=== PATIENT | female | born 1945 | race Caucasian/White ===

== ENCOUNTER 2016-07-16 02:47 | Emergency (ER) | payer MEDICARE ==
--- NOTE | 2016-07-16 05:38 | DIAGNOSTIC IMAGING REPORT ---
PROCEDURE: XR CHEST 1 VIEW INDICATION: CONFUSION, initial encounter TECHNIQUE: Portable AP view 03:43 a.m. COMPARISON: Chest x-ray 06/07/2014 FINDINGS: Lungs are clear. Heart and mediastinum are normal. Resection of the distal right clavicle. No significant interval change. IMPRESSION: 1. Negative chest.
--- NOTE | 2016-07-16 05:42 | DIAGNOSTIC IMAGING REPORT ---
PROCEDURE: CT HEAD WITHOUT CONTRAST INDICATION: MENTAL STATUS CHANGE, initial encounter TECHNIQUE: Noncontrast axial images with sagittal and coronal reformations. COMPARISON: None. FINDINGS: Mild cortical atrophy and white matter chronic ischemic changes. Normal ventricular system. Dystrophic calcifications of the basal ganglia bilaterally. No evidence of acute intracranial process. Mild left maxillary sinus disease. Mastoids are clear. IMPRESSION: 1. No acute intracranial abnormality 2. Mild atrophy and white matter chronic ischemic changes 3. Mild left maxillary sinus disease 4. Preliminary results submitted by Dr. Miller
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
--- NOTE | 2016-07-16 08:03 | ED ORDER SUMMARY ---
..... Patient: DEV VAZQUEZ OrderSheet [facility] VisitID: [id number] [address] [place] [address] 70y, F Registration Date/Time: 07/16/2016 ORDER SHEET Weight: 107.0 kg (stated) Allergies: Codeine GENERAL ORDERS: Chest 1V Urgent (03:33 07/16/2016 Brooklynn CASTILLO) (Ack 3:36 AMcQuoid ER Tech1) (3:47 TLewis R.N.) CT Head wo Cont Urgent (03:07/16/2016 Brooklynn CASTILLO) (Ack 3:36 AMcQuoid ER Tech1) (4:11 AMcQuoid ER Tech1) Green Promotions Specialist (Continuous) (03:07/16/2016 Brooklynn CASTILLO) (Ack 3:36 AMcQuoid ER Tech1) (3:46 TLewis R.N.) Cardiac Panel Stat (03:07/16/2016 Brooklynn CASTILLO) (3:35 TLewis R.N.) (Ack 3:36 AMcQuoid ER Tech1) UA-Culture if indicated Urgent (03:07/16/2016 Brooklynn CASTILLO) (Ack 3:36 AMcQuoid ER Tech1) (5:01 TLewis R.N.) Urine Drug Screen Urgent (03:07/16/2016 Brooklynn CASTILLO) (Ack 3:36 AMcQuoid ER Tech1) (5:01 TLewis R.N.) TSH Urgent (03:07/16/2016 Brooklynn CASTILLO) (3:35 TLewis R.N.) (Ack 3:36 AMcQuoid ER Tech1) Ethyl Alcohol Urgent (03:07/16/2016 Brooklynn CASTILLO) (3:35 TLewis R.N.) (Ack 3:36 AMcQuoid ER Tech1) Ammonia Level Urgent (03:07/16/2016 Brooklynn CASTILLO) (3:35 TLewis R.N.) (Ack 3:36 AMcQuoid ER Tech1) Pulse oximeter (03:07/16/2016 Brooklynn CASTILLO) (3:35 TLewis R.N.) (Ack 3:36 AMcQuoid ER Tech1) EKG - ER Stat (03:34 07/16/2016 Brooklynn CASTILLO) (Ack 3:36 AMcQuoid ER Tech1) (3:47 Fawadwis R.N.) MEDICATION ORDERS: IV FLUIDS: IV NS : initial bolus 500 mL (1000 mL/hr), then 150 mL/hr for 4h (NOW); Routine (03:33 07/16/2016 Brooklynn CASTILLO) (4:34 Miguel R.N.) Insulin Reg IV 7 units (NOW) (03:34 07/16/2016 Brooklynn CASTILLO) (3:46 Miguel R.N.) Rocephin IV 2 gm/50mL (NOW) (04:58 07/16/2016 Brooklynn CASTILLO) (5:09 TLewisarina R.N.) Magnesium Sulfate IV 2 gm/50mL (NOW, over 1 hour) (04:59 07/16/2016 Brooklynn CASTILLO) (5:35 Miguel R.N.) ORDER SHEET NOTES: [Electronically signed by Josh Chavarria R.N. (15:17 07/16/2016)] [Electronically signed by Jem Durant MD (23:12 07/18/2016)] [Electronically locked/signed by Josh Chavarria R.N. (15:17 07/16/2016)]
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
--- NOTE | 2016-07-16 08:03 | ED ORDER SUMMARY ---
..... Patient: DEV VAZQUEZ OrderSheet [facility] VisitID: [id number] [address] [place] [address] 70y, F Registration Date/Time: 07/16/2016 ORDER SHEET Weight: 107.0 kg (stated) Allergies: Codeine GENERAL ORDERS: Chest 1V Urgent (03:33 07/16/2016 Brooklynn CASTILLO) (Ack 3:36 AMcQuoid ER Tech1) (3:47 TLewis R.N.) CT Head wo Cont Urgent (03:07/16/2016 Boroklynn CASTILLO) (Ack 3:36 AMcQuoid ER Tech1) (4:11 AMcQuoid ER Tech1) Commissioning Specialist (Continuous) (03:07/16/2016 Brooklynn CASTILLO) (Ack 3:36 AMcQuoid ER Tech1) (3:46 TLewis R.N.) Cardiac Panel Stat (03:07/16/2016 Brooklynn CASTILLO) (3:35 TLewis R.N.) (Ack 3:36 AMcQuoid ER Tech1) UA-Culture if indicated Urgent (03:07/16/2016 Brooklynn CASTILLO) (Ack 3:36 AMcQuoid ER Tech1) (5:01 TLewis R.N.) Urine Drug Screen Urgent (03:07/16/2016 Brooklynn CASTILLO) (Ack 3:36 AMcQuoid ER Tech1) (5:01 TLewis R.N.) TSH Urgent (03:07/16/2016 Brooklynn CASTILLO) (3:35 TLewis R.N.) (Ack 3:36 AMcQuoid ER Tech1) Ethyl Alcohol Urgent (03:07/16/2016 Brooklynn CASTILLO) (3:35 TLewis R.N.) (Ack 3:36 AMcQuoid ER Tech1) Ammonia Level Urgent (03:07/16/2016 Brooklynn CASTILLO) (3:35 TLewis R.N.) (Ack 3:36 AMcQuoid ER Tech1) Pulse oximeter (03:07/16/2016 Brooklynn CASTILLO) (3:35 TLewis R.N.) (Ack 3:36 AMcQuoid ER Tech1) EKG - ER Stat (03:34 07/16/2016 Brooklynn CASTILLO) (Ack 3:36 AMcQuoid ER Tech1) (3:47 Fawadwis R.N.) MEDICATION ORDERS: IV FLUIDS: IV NS : initial bolus 500 mL (1000 mL/hr), then 150 mL/hr for 4h (NOW); Routine (03:33 07/16/2016 Brooklynn CASTILLO) (4:34 Miguel R.N.) Insulin Reg IV 7 units (NOW) (03:34 07/16/2016 Brooklynn CASTILLO) (3:46 Miguel R.N.) Rocephin IV 2 gm/50mL (NOW) (04:58 07/16/2016 Brooklynn CASTILLO) (5:09 TLewisarina R.N.) Magnesium Sulfate IV 2 gm/50mL (NOW, over 1 hour) (04:59 07/16/2016 Brooklynn CASTILLO) (5:35 Miguel R.N.) ORDER SHEET NOTES: [Electronically signed by Josh Chavarria R.N. (15:17 07/16/2016)] [Electronically signed by Jem Durant MD (23:12 07/18/2016)] [Electronically locked/signed by Josh Chavarria R.N. (15:17 07/16/2016)]
[2016-07-17] MEDS ORDERED: FLUOXETINE HCL20 MG PO (07:57)
[2016-07-17] MEDS ORDERED: LANTUS SOL100 UNITS/ SC (07:58)
[2016-07-17] MEDS ORDERED: METFORMIN HCL500 MG PO (07:59)
[2016-07-17] MEDS ORDERED: NOVOLIN NP100 UNITS/ SC (07:59)
[2016-07-17] MEDS ORDERED: LOVASTATIN40 MG PO (07:59)
[2016-07-17] MEDS ORDERED: SIMVASTATIN5 MG PO (08:02)
[2016-07-17] MEDS ORDERED: LEVOTHYROXINE25 MCG PO (17:10)
[2016-07-17] MEDS ORDERED: AMITRIPTYLINE H25 MG PO (17:12)
[2016-07-17] MEDS ORDERED: BACLOFEN10 MG PO (17:14)
[2016-07-17] MEDS ORDERED: BUSPIRONE HCL15 MG PO (17:15)
[2016-07-17] MEDS ORDERED: FLUTICASONE PR50 MCG (17:16)
[2016-07-17] MEDS ORDERED: BACITRACIN OP (17:17)
[2016-07-17] MEDS ORDERED: PROAIR HFA IN (17:21)
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
--- NOTE | 2016-07-18 23:12 | ED MAR SUMMARY ---
..... Medication Administration Record [facility] [address] [place] [address] Patient: DEV VAZQUEZ Visit ID: [id number] 70y, F Weight: 107.0 kg Height/Length: 63 in BMI: 41.8 ALLERGIES: Codeine Given 03:46 07/16/2016 Reece Thomas R.N. Medication Administered: INSULIN REG [IVP], Dose: 7 unit IVP over 1 minute(s), Site: #1 left hand. Medication Ordered: Insulin Reg IV 7 units (NOW). Start 04:34 07/16/2016 Reece Thomas R.N., Stop 08:10 07/16/2016 Josh Chavarria R.N. Medication Administered: IV NS (SALINE), Dose: IV Fluids over 4 hour(s), Rate: 150 mL/hr, Bolus: 500 mL wide open, Dispensed: 1000 mL bag, Site: #2 right hand. Medication Ordered: IV NS : initial bolus 500 mL (1000 mL/hr), then 150 mL/hr for 4h (NOW); Routine. Start 05:06 07/16/2016 Reece Thomas R.N., Stop 05:35 07/16/2016 Reece Thomas R.N. Medication Administered: ROCEPHIN [IVPB] (CEFTRIAXONE SODIUM), Dose: 2 gm IVPB over 30 minute(s), Rate: 150 mL/hr, Site: #2 right hand. Medication Ordered: Rocephin IV 2 gm/50mL (NOW). Given 05:35 07/16/2016 Reece Thomas R.N. Medication Administered: MAGNESIUM SULFATE [IVP] (MAGNESIUM SULFATE IN D5W), Dose: 2 gm IVP over 2 hour(s), Site: #2 right hand. Medication Ordered: Magnesium Sulfate IV 2 gm/50mL (NOW, over 1 hour).
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
--- NOTE | 2016-07-18 23:12 | ED MAR SUMMARY ---
..... Medication Administration Record [facility] [address] [place] [address] Patient: DEV VAZQUEZ Visit ID: [id number] 70y, F Weight: 107.0 kg Height/Length: 63 in BMI: 41.8 ALLERGIES: Codeine Given 03:46 07/16/2016 Reece Thomas R.N. Medication Administered: INSULIN REG [IVP], Dose: 7 unit IVP over 1 minute(s), Site: #1 left hand. Medication Ordered: Insulin Reg IV 7 units (NOW). Start 04:34 07/16/2016 Reece Thomas R.N., Stop 08:10 07/16/2016 Josh Chavarria R.N. Medication Administered: IV NS (SALINE), Dose: IV Fluids over 4 hour(s), Rate: 150 mL/hr, Bolus: 500 mL wide open, Dispensed: 1000 mL bag, Site: #2 right hand. Medication Ordered: IV NS : initial bolus 500 mL (1000 mL/hr), then 150 mL/hr for 4h (NOW); Routine. Start 05:06 07/16/2016 Reece Thomas R.N., Stop 05:35 07/16/2016 Reece Thomas R.N. Medication Administered: ROCEPHIN [IVPB] (CEFTRIAXONE SODIUM), Dose: 2 gm IVPB over 30 minute(s), Rate: 150 mL/hr, Site: #2 right hand. Medication Ordered: Rocephin IV 2 gm/50mL (NOW). Given 05:35 07/16/2016 Reece Thomas R.N. Medication Administered: MAGNESIUM SULFATE [IVP] (MAGNESIUM SULFATE IN D5W), Dose: 2 gm IVP over 2 hour(s), Site: #2 right hand. Medication Ordered: Magnesium Sulfate IV 2 gm/50mL (NOW, over 1 hour).
--- NOTE | 2016-07-18 23:12 | ED MED RECONCILIATION SUMMARY ---
Patient: DEV VAZQUEZ Medication Reconciliation Report [facility] VisitID: [id number] [address] [place] [address] 70y, F Registration Date/Time: 07/16/2016 Weight: 107.0 kg Height/Length: 63 in. BMI: 41.8 ALLERGIES: Codeine The patient's Home Medications are listed below: CONTINUE TAKING THE FOLLOWING MEDICATIONS: FLUoxetine HCl Oral 20 mg, daily Lantus Subcutaneous 135, every PM Lovastatin Oral 50 mg, daily MetFORMIN HCl Oral NovoLOG Subcutaneous sliding scale, before meals Simvastatin Oral 5 mg, daily The source(s) of the original Home Medication information: patient The following Medications were given to the patient in the Emergency Department: Insulin REG [IVP] IVP 7 unit, administered: 07/16/2016 3:46:00 AM IV NS IV Fluids bolus 500 mL wide open, then 150 mL/hr, administered: 07/16/2016 4:34:00 AM Rocephin [IVPB] IVPB bolus 0, then 2 gm 150 mL/hr, administered: 07/16/2016 5:06:00 AM Magnesium Sulfate [IVP] IVP 2 gm, administered: 07/16/2016 5:35:00 AM The following Medications were prescribed to the patient: Septra DS 800 mg / 160 mg: take 1 tablet orally every 12 hours for 7 days. Dispense fourteen (14). No refills. Substitution is permissible. -- Jem Durant MD
--- NOTE | 2016-07-18 23:12 | ED MED RECONCILIATION SUMMARY ---
Patient: DEV VAZQUEZ Medication Reconciliation Report [facility] VisitID: [id number] [address] [place] [address] 70y, F Registration Date/Time: 07/16/2016 Weight: 107.0 kg Height/Length: 63 in. BMI: 41.8 ALLERGIES: Codeine The patient's Home Medications are listed below: CONTINUE TAKING THE FOLLOWING MEDICATIONS: FLUoxetine HCl Oral 20 mg, daily Lantus Subcutaneous 135, every PM Lovastatin Oral 50 mg, daily MetFORMIN HCl Oral NovoLOG Subcutaneous sliding scale, before meals Simvastatin Oral 5 mg, daily The source(s) of the original Home Medication information: patient The following Medications were given to the patient in the Emergency Department: Insulin REG [IVP] IVP 7 unit, administered: 07/16/2016 3:46:00 AM IV NS IV Fluids bolus 500 mL wide open, then 150 mL/hr, administered: 07/16/2016 4:34:00 AM Rocephin [IVPB] IVPB bolus 0, then 2 gm 150 mL/hr, administered: 07/16/2016 5:06:00 AM Magnesium Sulfate [IVP] IVP 2 gm, administered: 07/16/2016 5:35:00 AM The following Medications were prescribed to the patient: Septra DS 800 mg / 160 mg: take 1 tablet orally every 12 hours for 7 days. Dispense fourteen (14). No refills. Substitution is permissible. -- Jem Durant MD
== END 2016-07-16 08:12 | disposition home or self-care (01) ==
LOC: ED SRH 02:47
DX: T22.211A Burn of second degree of right forearm, initial encounter (principal); X58.XXXA Exposure to other specified factors, initial encounter; Y93.9 Activity, unspecified; Y92.9 Unspecified place or not applicable; Y99.9 Unspecified external cause status; N39.0 Urinary tract infection, site not specified; F22 Delusional disorders; E11.65 Type 2 diabetes mellitus with hyperglycemia; I10 Essential (primary) hypertension; E83.42 Hypomagnesemia
CPT/HCPCS: 90004; 90100; 90148; 90469; 90616; 91588; 92010; 92610; 92720; 92760; 92761; 92762; 92763; 92764; 92765; 92766; 92767; 93140; 95059

== ENCOUNTER 2016-07-17 02:35 | Inpatient (IN) | payer MEDICARE, OTHER ==
[~2016-07-17] VITALS: Ht 160 cm; Wt 112.0 kg
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
--- NOTE | 2016-07-17 04:40 | ED ORDER SUMMARY ---
..... Patient: DEV VAZQUEZ OrderSheet [facility] VisitID: [id number] [address] [place] [address] 70y, F Registration Date/Time: 07/17/2016 ORDER SHEET Weight: 104.7 kg (stated) Allergies: Codeine GENERAL ORDERS: Chest 2V Urgent (03:07 07/17/2016 Mannie Penn) (Ack 3:17 CHagemilio ER Measurement Department Chief Clerk) (3:18 Mannie Penn) (Cancelled: Duplicate Order3:18 Mannie Penn) CT Head wo Cont Urgent (03:08 07/17/2016 Mannie Penn) (Ack 3:17 [place] ER Measurement Department Chief Clerk) (3:18 Mannie Penn) (Cancelled: Duplicate Order3:18 Mannie Penn) CBC w Diff Urgent (03:08 07/17/2016 Mannie Penn) (Ack 3:17 [place] [facility] Measurement Department Chief Clerk) (3:32 JBullard R.N.) CMP Urgent (03:08 07/17/2016 Mannie Penn) (Ack 3:17 [place] [facility] Measurement Department Chief Clerk) (3:32 JBullard R.N.) Lactate, Serum Urgent (03:08 07/17/2016 Mannie Penn) (Ack 3:17 [place] [facility] Measurement Department Chief Clerk) (4:01 JBullard R.N.) UA-Culture if indicated Urgent (03:08 07/17/2016 Mannie Penn) (Ack 3:17 [place] [facility] Measurement Department Chief Clerk) (4:01 JBullhaider R.N.) Pulse oximeter (03:08 07/17/2016 Mannie Penn) (Ack 3:17 [place] [facility] Measurement Department Chief Clerk) (3:32 JBullard R.N.) Blood Culture (Yes) (ceftriaxone) Urgent (03:08 07/17/2016 Mannie Penn) (Ack 3:17 [place] [facility] Measurement Department Chief Clerk) (4:01 JBullard R.N.) Lactate, Serum Urgent (07:46 07/17/2016 Mannie Penn) (Ack 7:52 TBergley) (8:15 TBergley) MEDICATION ORDERS: IV FLUIDS: IV NS : initial bolus 1000 mL (1000 mL/hr), then none - for X1 (NOW) (03:07 07/17/2016 Mannie Penn) (3:33 Cooper Dominguez) Ceftriaxone IV 1 gm/50mL (NOW) (04:35 07/17/2016 Mannie Penn) (4:56 Cooper R.NDusty) Morphine IV 4 mg (HIGH ALERT MEDICATION, NOW) (04:55 07/17/2016 Mannie Penn) (5:32 Cooper R.NDusty) ORDER SHEET NOTES: [Electronically signed by Kevin Domínguez Dr. (08:00 07/17/2016)] [Electronically signed by Chico Jarrell R.N. (18:28 07/18/2016)] [Electronically locked/signed by Chico Jarrell R.N. (18:28 07/18/2016)]
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
--- NOTE | 2016-07-17 04:40 | ED ORDER SUMMARY ---
..... Patient: DEV VAZQUEZ OrderSheet [facility] VisitID: [id number] [address] [place] [address] 70y, F Registration Date/Time: 07/17/2016 ORDER SHEET Weight: 104.7 kg (stated) Allergies: Codeine GENERAL ORDERS: Chest 2V Urgent (03:07 07/17/2016 Mannie Penn) (Ack 3:17 CHagemilio [facility] Corporate Recycling Manager) (3:18 Mannie Penn) (Cancelled: Duplicate Order3:18 Mannie Penn) CT Head wo Cont Urgent (03:08 07/17/2016 Mannie Penn) (Ack 3:17 [facility] [employer] Rec[employer]ing Manager) (3:18 Mannie Penn) (Cancelled: Duplicate Order3:18 Mannie Penn) CBC w Diff Urgent (03:08 07/17/2016 Mannie Penn) (Ack 3:17 [facility] [employer] Recycling Manager) (3:32 JBullard R.N.) CMP Urgent (03:08 07/17/2016 Mannie Penn) (Ack 3:17 [facility] [employer] Recycling Manager) (3:32 JBullard R.N.) Lactate, Serum Urgent (03:08 07/17/2016 Mannie Penn) (Ack 3:17 [facility] [employer] Rec[employer]ing Manager) (4:01 JBullard R.N.) UA-Culture if indicated Urgent (03:08 07/17/2016 Mannie Penn) (Ack 3:17 [facility] [employer] Recycling Manager) (4:01 JBullhaider R.N.) Pulse oximeter (03:08 07/17/2016 Mannie Penn) (Ack 3:17 [facility] [employer] Rec[employer]ing Manager) (3:32 JBullard R.N.) Blood Culture (Yes) (ceftriaxone) Urgent (03:08 07/17/2016 Mannie Penn) (Ack 3:17 [facility] [employer] Recycling Manager) (4:01 JBullard R.N.) Lactate, Serum Urgent (07:46 07/17/2016 Mannie Penn) (Ack 7:52 TBergley) (8:15 TBergley) MEDICATION ORDERS: IV FLUIDS: IV NS : initial bolus 1000 mL (1000 mL/hr), then none - for X1 (NOW) (03:07 07/17/2016 Mannie Penn) (3:33 Cooper Dominguez) Ceftriaxone IV 1 gm/50mL (NOW) (04:35 07/17/2016 Mannie Penn) (4:56 Cooper R.NDusty) Morphine IV 4 mg (HIGH ALERT MEDICATION, NOW) (04:55 07/17/2016 Mannie Penn) (5:32 Cooper R.NDusty) ORDER SHEET NOTES: [Electronically signed by Kevin Domínguez Dr. (08:00 07/17/2016)] [Electronically signed by Chico Jarrell R.N. (18:28 07/18/2016)] [Electronically locked/signed by Chico Jarrell R.N. (18:28 07/18/2016)]
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
[2016-07-17] MEDS ORDERED: FLUOXETINE HCL20 MG PO (07:57)
[2016-07-17] MEDS ORDERED: LANTUS SOL100 UNITS/ SC (07:58)
[2016-07-17] MEDS ORDERED: NOVOLIN NP100 UNITS/ SC (07:59)
[2016-07-17] MEDS ORDERED: METFORMIN HCL500 MG PO (07:59)
[2016-07-17] MEDS ORDERED: LOVASTATIN40 MG PO (07:59)
[2016-07-17] MEDS ORDERED: SIMVASTATIN5 MG PO (08:02)
--- NOTE | 2016-07-17 09:08 | NUR ---
RECEIVED PT FROM ED VIA JENNIE, AWAKE, ALERT, ORIENTED BUT FORGETFUL. ABLE TO FOLLOW COMMNADS. PT AMBULATE FRO MTHE JENNIE TO THE BED, APPROX 10 FEET. TOLERATED IT GOOD.
[2016-07-17 09:25] VITALS: BP 151/73
--- NOTE | 2016-07-17 11:55 | NUR ---
PT IS AWAKE, UP IN THE CHAIR. " CAN YOU TAKE OFF THIS ( POINTING ON HER IV SITE). I NEED TO GO HOME NOW. PT STATES. PT IS ANXIOUS, UPSET. REORIENTED PT. INFORMED HER THAT HER DAUGHTER WENT HOME AND SHE WILL BE BACK. " NO I CAN HER HER VOICE" SHE COULD HER MULU'S VOICE WHO IS SITTING NEXT DOOR AND CALLED MS HARDWICK AND LET HER SPOKE WITH THE PT. PT CALMED DOWN. THEN CLEANSE HER WOUNDS ON HER RT UPPER ARM, RT UPPER LATERAL ARM WITH SALINE. APPLIED SILVADENED, PLACED NON ADHERENT GAUZE THEN WRAPPED IT WITH KERLIX. AT 1230, PT WENT BACK TO BED. ORIENTED TO PLACE. COOPERATIVE.
[2016-07-17 15:28] VITALS: BP 142/73
--- NOTE | 2016-07-17 16:19 | NUR ---
PT CALLED AND ASKED " WHEN ARE THE INSPECTOR PRINTED CIRCUIT BOARDS GOING TO BE HERE? I AM GOING TO LONG TERM" PT STATES. REORIENTED PT. PT IS VERY CONFUSED BUT COOPERATIVE. PT TOOK OFF HER DRESSING ON HER RT ARM, TRIED TO PUT IT BACK BUT PT REFUSED AT THIS TIME.
[2016-07-17] MEDS ORDERED: LEVOTHYROXINE25 MCG PO (17:10)
[2016-07-17] MEDS ORDERED: AMITRIPTYLINE H25 MG PO (17:12)
[2016-07-17] MEDS ORDERED: BACLOFEN10 MG PO (17:14)
[2016-07-17] MEDS ORDERED: BUSPIRONE HCL15 MG PO (17:15)
[2016-07-17] MEDS ORDERED: FLUTICASONE PR50 MCG (17:16)
[2016-07-17] MEDS ORDERED: BACITRACIN OP (17:17)
[2016-07-17] MEDS ORDERED: PROAIR HFA IN (17:21)
--- NOTE | 2016-07-17 17:30 | NUR ---
PT IS UP IN THE CHAIR, COOPERATIVE. STILL DISORIENTED BUT EASILY AROUSED. DAUGHTER IS WITH THE PT. BROUGHT PT'S MEDICATIONS AND UPDATED HER MEDICATION PROFILE.
[2016-07-17 18:45] VITALS: BP 131/53
--- NOTE | 2016-07-17 19:00 | NUR ---
PT IS DISORIENTED, MYRNA (SAV) IS STILL WITH THE PT. AND RETURNED PT'S MEDICATION AND TOOK THEM HOME. PT AGREED FOR ME TO CLEAN AND REDRESSED HER RT UPPER ARM.
--- NOTE | 2016-07-17 22:30 | NUR ---
Patient appears pleasantly confused. Daughter staying in for the night with approval from night super. Given night time snack as she is on a high dose of insulin.
[2016-07-17 23:03] VITALS: BP 159/66
--- NOTE | 2016-07-18 | NUR ---
PATIENT STRIPPED HER DRESSING OF SHE SAYS IT KEEPS ON ROLLING DOWN HER ARMS. SHE REFUSED TO HAVE IT RENEWED DESPITE NURSES EFFORTS.
[2016-07-18 03:30] VITALS: BP 151/89
[2016-07-18 06:40] VITALS: BP 183/99
--- NOTE | 2016-07-18 08:22 | Progress Note ---
Subjective General Note Date: July 18, 2016 Admission Date: July 17, 2016 Hospital Day: 1 Status: Inpatient Advanced Directive: FULL CODE Room: 208 Subjective: The patient status is much improved. Oriented to person and place. Family states mental status 50-60% improved since admission. Denies any hallucinations at this time. Patient requests: None Medications and Allergies Medications Current Medications Sig/Silvana Start time Last Medication Dose Route Stop Time Status Admin Pantoprazole Sodium 40 MG DAILY@0600 07/18 0600 AC 07/18 IV 0645 Insulin Glargine 75 UNITS QHS 07/17 2100 AC 07/17 SC 2130 Atorvastatin Calcium 40 MG QPM 07/17 1800 AC 07/17 PO 1808 Silver Sulfadiazine See Dose DAILY 07/17 1000 AC 07/17 Insts (1) TOP 1159 Ceftriaxone Sodium/ 50 ML DAILY 07/17 0900 AC 07/17 Dextrose IV 0947 Enoxaparin Sodium 30 MG QAM 07/17 0900 AC 07/17 SC 0936 Fluoxetine HCl 20 MG DAILY 07/17 0900 AC 07/17 PO 0936 Insulin Human Lispro See Dose ACHS 07/17 0730 AC 07/17 Insts (2) SC 2131 Acetaminophen 650 MG Q6H PRN 07/17 0615 AC 07/17 PO 2134 Docusate Sodium 250 MG BID PRN 07/17 0615 AC PO Ondansetron HCl 4 MG Q6H PRN 07/17 0615 AC IV Sodium Chloride 1,000 ML ASDIRECTED 07/17 0615 AC 07/18 IV 0457 Ondansetron HCl 4 MG Q8H PRN 07/17 0445 AC IV Dose Instructions: (1)Silver Sulfadiazine: APPLY DAILY (2)Insulin Human Lispro: MEDIUM DOSE: ACCUCHECK AND SLIDING SCALE >>To change sliding scale DISCONTINUE this order and enter a NEW order. Thanks< Allergies Coded Allergies: Codeine (Mild, hives 07/17/16) Physical Exam Vital Signs / I&Os Vital Signs Date Time Temp Pulse Resp B/P Pulse O2 O2 Flow FiO2 Ox Delivery Rate 07/18 0640 97.9 75 16 183/99 95 Room Air 0.0 07/18 0330 98.8 66 12 151/89 95 Room Air 07/17 2303 98.2 78 16 159/66 95 Room Air 0.0 07/17 2153 Room Air 07/17 1845 98.1 78 16 131/53 98 Room Air 0.0 07/17 1528 97.9 73 16 142/73 98 Room Air 0.0 07/17 1030 Room Air 0.0 07/17 0925 98.1 70 17 151/73 96 0.0 Non-Rebreather Mask I&O 07/18 0000 07/17 1600 07/17 0800 Intake Total 1005 120 Output Total 800 450 Balance 205 -330 General Appearance Alert, Cooperative, No acute distress Lungs Clear to auscultation Cardiovascular Regular rate and rhythm, Normal S1 and S2 Abdomen Normal bowel sounds, Soft, No tenderness Extremities No cyanosis, No clubbing, No edema Neurological Cranial nerves intact, Strength 5/5 x4 ext's, No lateralizing signs Psych/Mental Status Mood normal, Confused LAB Results Laboratory Tests 07/18 07/18 0605 0605 Chemistry Plasma Sodium (136 - 145 mmol/L) 137 Plasma Potassium (3.5 - 5.1 mmol/L) 3.8 Plasma Chloride (98 - 107 mmol/L) 103 CO2 (Enzymatic) (21 - 32 mmol/L) 25 BUN (7 - 18 mg/dL) 21 Creatinine (0.6 - 1.3 mg/dL) 1.4 Est GFR ( Amer) (mL/min) 48.03 Est GFR (Non-Af Amer) (mL/min) 39.63 Glucose (70 - 110 mg/dL) 151 Hemoglobin A1c % (4.5 - 6.2 %) 8.0 Plasma Calcium (8.5 - 10.1 mg/dL) 8.9 Plasma Magnesium (1.8 - 2.4 mg/dL) 1.4 Total Bilirubin (0.0 - 1.0 mg/dL) 0.3 AST (15 - 37 U/L) 32 ALT (12 - 78 U/L) 39 Alkaline Phosphatase (46 - 116 U/L) 131 Total Protein (6.4 - 8.2 g/dL) 6.0 Albumin (3.3 - 5.0 g/dL) 2.6 Hematology WBC (4.5 - 11.5 K/uL) 8.6 RBC (4.00 - 5.20 M/uL) 3.46 Hgb (12.0 - 16.0 gm/dL) 10.6 Hct (36.0 - 46.0 %) 32.1 MCV (80 - 100 fL) 93 MCH (26 - 34 pg) 31 RDW (11.6 - 14.8 %) 13.3 Neut % (Auto) (50 - 75 %) 53.8 Lymph % (Auto) (25 - 40 %) 34.1 [place] % (Auto) (3 - 14 %) 6.6 Eos % (Auto) (0 - 4 %) 4.9 Baso % (Auto) (0 - 2 %) 0.6 Plt Count, EDTA (150 - 400 K/uL) 324 PUBS MCHC (31 - 37 g/dL) 33 Microbiology Date/Time Procedure - Status Source Growth 07/17 0953 MRSA Screen - RECD NASAL Assessment and Plan Problem List 1. Altered mental status, unspecified Plan -Patient with persistent altered mental status -Patient's mental status improved since admission, family states 50-60% improved -Patient feels mental status is improved and was aware of her confusion earlier -Patient ambulating, eating normally 2. Hypertension Status Chronic Onset Date Unknown 3. Diabetes mellitus Status Chronic Onset Date Unknown 4. Urinary tract infection Plan -Patient presented with suspected UTI -Urine culture negative at 24 hours -Continue antimicrobials until 48 hour culture available -Afebrile -Monitor Current status: Fair, improved Anticipated discharge date: Anticipated discharge in 1-2 days Anticipated discharge placement: Home Patient care time: Time spent in chart review, patient interview, physical exam, CPOE, and care documentation: 35 minutes Visit to patient today: 2 Complexity of care: High E&M Codes Rounding: Inpt-High/[id number]
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
[2016-07-18 11:14] VITALS: BP 170/84
--- NOTE | 2016-07-18 14:08 | NUR ---
PT COME OUT HER ROOM, HER IV TUBING WAS STRETCH. ASSISTED PT BACK IN HER BED, " TELL ME THE TRUTH, AM I IN GROUP HOME, ARE YOU THE SPOOL FIXER? PT IS CONFUSED, DISORIENTED. REORIENTED PT. STAYED AND TALKED TO THE PT. FOR 10 MINS, PT IS STILL CONFUSED BUT COOPERATIVE. DR MULTANI NOTIFIED.
--- NOTE | 2016-07-18 14:50 | NUR ---
PT'S DAUGHTER CAME. INFORMED HER THAT PT IS CONFUSED, PARANOID. " ARE THE ANIMAL SITTER HERE YET" REORIENTED PT. " STOP LYING AT ME. LEAVE ME ALONE" PT STATES. PT TOOK OFF HER DRESSING ON HER RT ARM.
[2016-07-18 14:51] VITALS: BP 187/84
--- NOTE | 2016-07-18 16:58 | NUR ---
PT IS STILL CONFUSED WITH EVENTS, PLACE, BUT COOPERATIVE. MS ERIKA HELPED HER WITH HER SHOWER. LINEN CHANGED. REDRESSED HER WOUND ON HER DARCY.
--- NOTE | 2016-07-18 18:00 | NUR ---
Pt's daughter went home but Dr Kendrick spoke with her. at 1830, earnest came to stay with pt. Pt is disoriented, talking about the past. But cooperative. tried to give her medications but refused. " these are not my pills, they are pink in color" pt states. Explained to pt that every cholesterol pills are different. But pt still refused to take it.
[2016-07-18 18:10] VITALS: BP 176/90
--- NOTE | 2016-07-18 18:29 | ED DISCHARGE INSTRUCTIONS ---
Patient: DEV VAZQUEZ General Instructions [facility] VisitID: [id number] [address] [place] [address] 70y, F Registration Date/Time: 07/17/2016 acute altered mental status lactic acidosis acute kidney injury acute UTI. (Electronically signed by Kevin Domínguez Dr. 07/17/2016 8:00)
--- NOTE | 2016-07-18 18:29 | ED DISCHARGE INSTRUCTIONS ---
Patient: DEV VAZQUEZ General Instructions [facility] VisitID: [id number] [address] [place] [address] 70y, F Registration Date/Time: 07/17/2016 acute altered mental status lactic acidosis acute kidney injury acute UTI. (Electronically signed by Kevin Domínguez Dr. 07/17/2016 8:00)
--- NOTE | 2016-07-18 18:29 | ED MED RECONCILIATION SUMMARY ---
Patient: DEV VAZQUEZ Medication Reconciliation Report [facility] VisitID: [id number] [address] [place] [address] 70y, F Registration Date/Time: 07/17/2016 Weight: 104.7 kg Height/Length: 63 in. BMI: 40.9 ALLERGIES: Codeine The patient's Home Medications are listed below: THE FOLLOWING MEDICATIONS NEED TO BE RECONCILED: FLUoxetine HCl Oral 20 mg, daily Lantus Subcutaneous 135, every PM Lovastatin Oral 50 mg, daily MetFORMIN HCl Oral NovoLOG Subcutaneous sliding scale, before meals Simvastatin Oral 5 mg, daily The source(s) of the original Home Medication information: Not obtained. The following Medications were given to the patient in the Emergency Department: IV NS IV Fluids bolus 1000 mL wide open, administered: 07/17/2016 3:33:00 AM Ceftriaxone [IVPB] IVPB bolus 0, then 1 gm 100 mL/hr, administered: 07/17/2016 4:56:00 AM Morphine [IVP] IVP 4 mg, administered: 07/17/2016 5:07:00 AM The following Medications were prescribed to the patient: None.
--- NOTE | 2016-07-18 18:29 | ED MED RECONCILIATION SUMMARY ---
Patient: DEV VAZQUEZ Medication Reconciliation Report [facility] VisitID: [id number] [address] [place] [address] 70y, F Registration Date/Time: 07/17/2016 Weight: 104.7 kg Height/Length: 63 in. BMI: 40.9 ALLERGIES: Codeine The patient's Home Medications are listed below: THE FOLLOWING MEDICATIONS NEED TO BE RECONCILED: FLUoxetine HCl Oral 20 mg, daily Lantus Subcutaneous 135, every PM Lovastatin Oral 50 mg, daily MetFORMIN HCl Oral NovoLOG Subcutaneous sliding scale, before meals Simvastatin Oral 5 mg, daily The source(s) of the original Home Medication information: Not obtained. The following Medications were given to the patient in the Emergency Department: IV NS IV Fluids bolus 1000 mL wide open, administered: 07/17/2016 3:33:00 AM Ceftriaxone [IVPB] IVPB bolus 0, then 1 gm 100 mL/hr, administered: 07/17/2016 4:56:00 AM Morphine [IVP] IVP 4 mg, administered: 07/17/2016 5:07:00 AM The following Medications were prescribed to the patient: None.
--- NOTE | 2016-07-18 18:29 | ED MAR SUMMARY ---
..... Medication Administration Record [facility] [address] [place] [address] Patient: DEV VAZQUEZ Visit ID: [id number] 70y, F Weight: 104.7 kg Height/Length: 63 in BMI: 40.9 ALLERGIES: Codeine Start 03:33 07/17/2016 Jimi Juarez R.N. Medication Administered: IV NS (SALINE), Dose: IV Fluids, Bolus: 1000 mL wide open, Dispensed: 1000 mL bag, Site: #1 left AC. Medication Ordered: IV NS : initial bolus 1000 mL (1000 mL/hr), then none - for X1 (NOW). Start 04:56 07/17/2016 Jimi Juarez R.N. Medication Administered: CEFTRIAXONE [IVPB], Dose: 1 gm IVPB over 0.5 hour(s), Rate: 100 mL/hr, Dispensed: 50 mL bag, Site: #1 left AC. Medication Ordered: Ceftriaxone IV 1 gm/50mL (NOW). Given 05:07 07/17/2016 Jimi Juarez R.N. Medication Administered: MORPHINE [IVP], Dose: 4 mg IVP over 2 minute(s), Site: #1 left AC. Medication Ordered: Morphine IV 4 mg (HIGH ALERT MEDICATION, NOW).
--- NOTE | 2016-07-18 18:29 | ED MAR SUMMARY ---
..... Medication Administration Record [facility] [address] [place] [address] Patient: DEV VAZQUEZ Visit ID: [id number] 70y, F Weight: 104.7 kg Height/Length: 63 in BMI: 40.9 ALLERGIES: Codeine Start 03:33 07/17/2016 Jimi Juarez R.N. Medication Administered: IV NS (SALINE), Dose: IV Fluids, Bolus: 1000 mL wide open, Dispensed: 1000 mL bag, Site: #1 left AC. Medication Ordered: IV NS : initial bolus 1000 mL (1000 mL/hr), then none - for X1 (NOW). Start 04:56 07/17/2016 Jimi Juarez R.N. Medication Administered: CEFTRIAXONE [IVPB], Dose: 1 gm IVPB over 0.5 hour(s), Rate: 100 mL/hr, Dispensed: 50 mL bag, Site: #1 left AC. Medication Ordered: Ceftriaxone IV 1 gm/50mL (NOW). Given 05:07 07/17/2016 Jimi Juarez R.N. Medication Administered: MORPHINE [IVP], Dose: 4 mg IVP over 2 minute(s), Site: #1 left AC. Medication Ordered: Morphine IV 4 mg (HIGH ALERT MEDICATION, NOW).
[2016-07-19 00:58] VITALS: BP 171/82
--- NOTE | 2016-07-19 04:31 | NUR ---
2000 A/Ox3 interactive, quite pleasant, talkative. grand daugher in the room with pt. pt is cooprative but at times quite opiniative w/ some dissociated subject, paranoid, slightly aggressive attitude. partially with the program but shown some confusion. Forgetful, oob to BR w/ IV line pulling, impulsive. bed exit alarm continued, freq reminder provided. 2230 pt became extremely agitated saying "I am going home. need to be out of here." pt informed the reason being in hospital/current condition/treatment etc. escalated aggressiveness as pt was stopped getting ready to elope. Dr Duncan at nrs station. pt yelling screaming and threatning staff verbally and physically as proceeding to elope in the hallway (out of the room), called kenneth garcia. pt aggressiveness increased to kicking, pinching, pushing, pulling. safely placed on w/c to pt's room and placed in the bed. 4 points lock restraints placed as all other strategy failed. pt informed the process, plan,goal. 2330 Q15min check per protocol. no injurty noted, managed agitation. 0030. pt agreed not to harm staff, to cooperate. actively interactive in verbal, follows commands,shown cooperative behavior. 4 lock restraints discontinued. pt was offered BRP, PO intake. still refuses. 0130 pt allowed BS check, insulin inj, along with Lisinopril due to HTN. vs rechecked. cont close monitoing for safety. IVF d/c's earlier per MD order. 0230 pt is busy in room, no sleep, arranging personal items. gets oob often w/o calling for help. forgetful to call impulsiveness/lack of attention to enviromental safty, put pt on risk of fall. 0330 pt became over friendly and consistently busy in room staying out of the bed most of the times. continued close monitoring this RN stayed close by the door. Suddenly pt got out of the room saying "going home and cannot stop me." attempt to stop pt elope all strategy not successful. pt became aggresive, agitated, yelling, screaming, fast walking out to the end of the sun and trying to open the locked door, (attempt elopment) taken a wall sign off forceful. Called kenneth Garcia. pt was placed in her room safely but extremely agitated, aggresive-attempting kicking, yelling, biting, etc. 4 point locked restraints applied. infomed pt reason, care plan, goal. 0400 on 4 poits restrains, pt yelling screaming. Reoriented,re informed, care plan. Ativan 1mg po given per order. pt was redirectly after few more explanation. 0500 watching TV and resting. cont current restraints. will reassess and follow up for necessity/method of restraints.
[2016-07-19 06:56] VITALS: BP 152/82
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
--- NOTE | 2016-07-19 13:48 | NUR ---
RN 1:1 CARE STARTED AT @ 1130 THIS AM. PT SCREAMING OUT, "FIRE! FIRE!" EXPLAINED TO PT THERE WAS NO FIRE AND ASKED IF SHE NEEDED A DRINK OF WATER OR IF SHE NEEDED TO USE THE BATHROOM AND PT DECLINED. [address] AND CHECKED FOR COMFORT. SHE REFUSES ALL CARE @ THIS TIME. SHE STATED, "JUST LEAVE ME ALONE OR I'LL HURT YOU." TRYING TO PINCH AND KICK. DR MULTANI NOTIFIED AND NEW ORDERS RECEIVED. KYLAH.
--- NOTE | 2016-07-19 13:59 | NUR ---
GAVE HALDOL 5MG IM IN RIGHT UPPER THIGH. WCTM.
[2016-07-19 14:51] VITALS: BP 144/79
--- NOTE | 2016-07-19 14:53 | NUR ---
In to see patient who is currently in restraints, received permission to do dressing change to right upper arm, scant bloody drainage on old dressing. Wounds very high up on right upper arm, Silver foam placed over open areas and other dark,reddish medina, secured with fabric tape, pt tolerated procedure well, will continue to monitor.
--- NOTE | 2016-07-19 15:23 | NUR ---
GAVE HALDOL IM @ 1400 AND NOW SHE'S PLEASANT AND COOPERATIVE. SHE ASKED ME TO ASK THE DR IF HE WOULD ORDER SOME HEROIN SO SHE COULD JUST GO TO SLEEP. I EXPLAINED TO HER THAT I WOULD ASK THE DOCTOR IF SHE COULD HAVE SOMETHING FOR SLEEP. DR MULTANI NOTIFED AND NEW ORDERS RECEIVED. PT WILLINGLY TOOK SL ZYPREXA. RESTAINT FORM ORDERED @ [address] MULTANI REMINDED TO SIGN. PT STILL IN NEED OF 4 PT RESTRAINTS AT THIS TIME.
--- NOTE | 2016-07-19 15:34 | NUR ---
PATIENT IS STILL CONFUSED TALKING ABOUT RESTARAUNTS, DOES NOT KNOW WHERE SHE IS AT STATES SHE IS IN THE "MIDDLE" OF SOMETHING. STATES SHE HAS NO KIDS NO , "NOTHING". DOESNT KNOW WHERE SHE LIVES.
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
--- NOTE | 2016-07-19 17:58 | Progress Note ---
Subjective General Note Date: July 19, 2016 Admission Date: July 17, 2016 Hospital Day: 3 Status: Inpatient Advanced Directive: FULL CODE Room: 208 Subjective: The patient is very agitated this a.m. Required Haldol for sedation last night. Paranoid. Awaiting mental health evaluation. Patient requests: None Medications and Allergies Medications Current Medications Sig/Silvana Start time Last Medication Dose Route Stop Time Status Admin Olanzapine 5 MG BID 07/19 1600 AC 07/19 PO 1530 Memantine 5 MG DAILY 07/19 0900 AC PO Lorazepam See Dose Q2H PRN 07/19 0345 CAN Insts (1) IV Lisinopril 10 MG QHS 07/18 2200 AC 07/19 PO 0133 Magnesium Chloride 535 MG TID 07/18 1400 AC 07/18 PO 1420 Pantoprazole Sodium 40 MG DAILY@0600 07/18 0600 AC 07/19 IV 0650 Insulin Glargine 75 UNITS QHS 07/17 2100 AC 07/19 SC 0137 Atorvastatin Calcium 40 MG QPM 07/17 1800 AC 07/17 PO 1808 Silver Sulfadiazine See Dose DAILY 07/17 1000 AC 07/18 Insts (2) TOP 1136 Ceftriaxone Sodium/ 50 ML DAILY 07/17 0900 AC 07/19 Dextrose IV 1200 Enoxaparin Sodium 30 MG QAM 07/17 0900 AC 07/18 SC 0837 Fluoxetine HCl 20 MG DAILY 07/17 0900 AC 07/18 PO 0837 Insulin Human Lispro See Dose ACHS 07/17 0730 AC 07/19 Insts (3) SC 1153 Acetaminophen 650 MG Q6H PRN 07/17 0615 AC 07/17 PO 2134 Docusate Sodium 250 MG BID PRN 07/17 0615 AC PO Sodium Chloride 1,000 ML ASDIRECTED 07/17 0615 AC 07/19 IV 1646 Ondansetron HCl 4 MG Q8H PRN 07/17 0445 AC IV Dose Instructions: (1)Lorazepam: 1 - 2 MG (2)Silver Sulfadiazine: APPLY DAILY (3)Insulin Human Lispro: MEDIUM DOSE: ACCUCHECK AND SLIDING SCALE >>To change sliding scale DISCONTINUE this order and enter a NEW order. Thanks< Allergies Coded Allergies: Codeine (Mild, hives 07/17/16) Physical Exam Vital Signs / I&Os Vital Signs Date Time Temp Pulse Resp B/P Pulse O2 O2 Flow FiO2 Ox Delivery Rate 07/19 1806 99.0 72 20 154/68 97 Room Air 07/19 1530 Room Air 07/19 1451 98.6 78 20 144/79 96 07/19 1235 Room Air 07/19 0656 98.4 93 20 152/82 95 Room Air 0.0 07/19 0058 97.9 85 20 171/82 94 Room Air 07/18 2135 Room Air 0.0 I&O 07/19 0000 07/18 1600 07/18 0800 Intake Total 120 2762 650 Output Total 150 100 Balance 120 2612 550 General Appearance Moderate distress, Agitated, confused, paranoid ideation noted Neurological Cranial nerves intact, Strength 5/5 x4 ext's, No lateralizing signs Psych/Mental Status Confused, agitated Assessment and Plan Problem List 1. Altered mental status, unspecified Plan -Patient with altered mental status -Agitated -Paranoid ideation -Haldol given with improved status, transition to Zyprexa 5 mg by mouth twice a day -Continue BuSpar -Await mental health evaluation 2. Urinary tract infection Plan -Urinalysis suggestive of UTI -Urine C&S negative -Monitor 3. Diabetes mellitus Status Chronic Onset Date Unknown 4. Hypertension Status Chronic Onset Date Unknown Plan -Mild elevation. -Monitor Current status: Fair, unstable Anticipated discharge date: Anticipated discharge in 2-3 days Anticipated discharge placement: Mental health facility Patient care time: Time spent in chart review, patient interview, physical exam, CPOE, and care documentation: 25 minutes Visit to patient today: 2 Complexity of care: High E&M Codes Rounding: Inpt-High/[id number]
[2016-07-19 18:06] VITALS: BP 154/68
--- NOTE | 2016-07-19 19:56 | NUR ---
DAUGHTER TO VISIT THE PATIENT, WILL MONITOR. HAS NO COMPLAINTS. CAREPARTNER AT BEDSIDE WELL. DID SEE A DOG EARLIER IN THE ROOM.
[2016-07-19 22:27] VITALS: BP 161/87; BP 175/85
--- NOTE | 2016-07-19 22:58 | NUR ---
NOTIFIED DR BURNETT OF PATIENT'S BLOOD PRESSURE AND THAT SHE IS REFUSING LISINOPRIL. NO NEW ORDERS RECIEVED, WILL MONITOR.
[2016-07-20] VITALS (7 sets, daily range): BP systolic 147–173; BP diastolic 67–110
--- NOTE | 2016-07-20 06:06 | NUR ---
Pt sleeping through remainder of shift. This morning pt is A&XO, pleasant and cooperative. WCTM.
--- NOTE | 2016-07-20 07:38 | NUR ---
RECEIVED PT IN BED, AWAKE, ALERT, ORIENTED, COHERENT, COPERATRIVE. V/S TAKEN AND RECORDED. ASSESSMENT DONE. PT DENIES PAIN AT THIS TIME. COFFEE OFFERED/GIVEN. INFORMED THE PT THAT I WILL TAKE OFF HER RESTRAINTS BUT IF SHE BECOMES AGITATED, COMBATIVE, I WILL PUT IT BACK ON. PT AGREED. TOOK OF HER HAND RESTRAINTS. DRUNK HER COFFEE. PT IS COOPERATIVE. AT 0750. PT WANTS TO USE THE BATHROOM, TOOK OFF HER RESTRAINTS ON BOTH ANKLES. MANDEEP CARE DONE BY PT. WASHED HER HANDS AND FACE IN THE SINK. THEN ASSISTTED PT UP THE CHAIR FOR MEALS. AT 0825, TOLERATED HER MEALS WELL. DUE MEDS GIVEN. NEEDS ATTENDED.
--- NOTE | 2016-07-20 07:45 | Progress Note ---
Subjective General Note Date: July 20, 2016 Admission Date: July 17, 2016 Hospital Day: 4 Status: Inpatient Advanced Directive: FULL CODE Room: 208 Subjective: Patient's status much improved this a.m.. Significant improvement with current medical regimen regarding agitation. Patient remains confused Patient requests: None Medications and Allergies Medications Current Medications Sig/Silvana Start time Last Medication Dose Route Stop Time Status Admin Magnesium Sulfate 50 ML ONCE ONE 07/20 0730 AC IV 07/20 0929 Magnesium Sulfate 2 GM NOW STA 07/20 0650 CAN IV 07/20 0651 Tramadol HCl 50 MG Q6H PRN 07/20 0200 AC 07/20 PO 0233 Buspirone HCl 15 MG BID 07/19 2100 AC 07/19 PO 205 Levothyroxine Sodium 50 MCG DAILY@0600 07/19 1900 AC 07/20 PO 0535 Olanzapine 5 MG BID 07/19 1600 AC 07/19 PO 205 Memantine 5 MG DAILY 07/19 0900 AC PO Lisinopril 10 MG QHS 07/18 2200 AC 07/19 PO 0133 Magnesium Chloride 535 MG TID 07/18 1400 AC 07/20 PO 0535 Pantoprazole Sodium 40 MG DAILY@0600 07/18 0600 AC 07/20 IV 0535 Insulin Glargine 75 UNITS QHS 07/17 2100 AC 07/19 SC 2108 Atorvastatin Calcium 40 MG QPM 07/17 1800 AC 07/19 PO 1840 Silver Sulfadiazine See Dose DAILY 07/17 1000 AC 07/18 Insts (1) TOP 1136 Ceftriaxone Sodium/ 50 ML DAILY 07/17 0900 AC 07/19 Dextrose IV 1200 Enoxaparin Sodium 30 MG QAM 07/17 0900 AC 07/18 SC 0837 Fluoxetine HCl 20 MG DAILY 07/17 0900 AC 07/19 PO 2108 Insulin Human Lispro See Dose ACHS 07/17 0730 AC 07/19 Insts (2) SC 2108 Acetaminophen 650 MG Q6H PRN 07/17 0615 AC 07/17 PO 2134 Docusate Sodium 250 MG BID PRN 07/17 0615 AC PO Sodium Chloride 1,000 ML ASDIRECTED 07/17 0615 AC 07/20 IV 0241 Ondansetron HCl 4 MG Q8H PRN 07/17 0445 AC IV Dose Instructions: (1)Silver Sulfadiazine: APPLY DAILY (2)Insulin Human Lispro: MEDIUM DOSE: ACCUCHECK AND SLIDING SCALE >>To change sliding scale DISCONTINUE this order and enter a NEW order. Thanks< Allergies Coded Allergies: Codeine (Mild, hives 07/17/16) Physical Exam Vital Signs / I&Os Vital Signs Date Time Temp Pulse Resp B/P Pulse O2 O2 Flow FiO2 Ox Delivery Rate 07/20 0617 97.9 66 20 169/84 97 Room Air 07/20 0208 98.8 72 20 156/73 96 Room Air 0.0 07/19 2227 99.1 72 20 161/87 98 Room Air 07/19 1806 99.0 72 20 154/68 97 Room Air 07/19 1530 Room Air 07/19 1451 98.6 78 20 144/79 96 07/19 1235 Room Air I&O 07/20 0000 07/19 1600 07/19 0800 Intake Total 899 0 Output Total 350 0 300 Balance 549 0 -300 General Appearance Alert, Cooperative, No acute distress Lungs Clear to auscultation, Normal air movement Cardiovascular Regular rate and rhythm, Normal S1 and S2 Abdomen Normal bowel sounds, Soft, No tenderness Extremities No cyanosis, No clubbing Neurological Cranial nerves intact, No lateralizing signs Psych/Mental Status Confused, No significant agitation today, remains confused intermittently. LAB Results Laboratory Tests 07/20 07/20 0515 0515 Chemistry Plasma Magnesium (1.8 - 2.4 mg/dL) 1.6 Iron (35 - 150 ug/dL) 67 TIBC (260 - 445 ug/dL) 269 Iron Saturation (15 - 50 %) 25 Vitamin B12 (211 - 946 pg/mL) 382 Hematology WBC (4.5 - 11.5 K/uL) 9.6 RBC (4.00 - 5.20 M/uL) 3.47 Hgb (12.0 - 16.0 gm/dL) 10.7 Hct (36.0 - 46.0 %) 32.3 MCV (80 - 100 fL) 93 MCH (26 - 34 pg) 31 RDW (11.6 - 14.8 %) 13.6 Neut % (Auto) (50 - 75 %) 61.4 Lymph % (Auto) (25 - 40 %) 28.5 Branch % (Auto) (3 - 14 %) 6.2 Eos % (Auto) (0 - 4 %) 3.5 Baso % (Auto) (0 - 2 %) 0.4 Plt Count, EDTA (150 - 400 K/uL) 323 PUBS MCHC (31 - 37 g/dL) 33 Assessment and Plan Problem List 1. Altered mental status, unspecified Plan -patient with severe agitation,, mental status changes -Possible bipolar disorder -Zyprexa 5 mg by mouth twice a day -Patient status much improved with current medical regimen for persistent alteration of mental status -Await placement with mental health 2. Urinary tract infection Plan -resolved -DC Rocephin -Recheck UA 2 days 3. Diabetes mellitus Status Chronic Onset Date Unknown Plan -stable -blood glucose 116 mg/dL this a.m. -Continue present regimen 4. Hypertension Status Chronic Onset Date Unknown Plan -stable -Low salt diet -Monitor Current status: Fair, improved, unstable Anticipated discharge date: anticipated discharge in a.m. to mental health facility Anticipated discharge placement: Mental health facility Patient care time: Time spent in chart review, patient interview, physical exam, CPOE, and care documentation: 35 minutes Visit to patient today: 2 Complexity of care: High E&M Codes Rounding: Inpt-High/[id number]
--- NOTE | 2016-07-20 11:51 | NUR ---
PT IS BACK IN BED ASLEEP.
--- NOTE | 2016-07-20 12:28 | NUR ---
PT IS STILL ASLEEP, SNORING.
--- NOTE | 2016-07-20 13:30 | NUR ---
PT IS AWAKE, DISORIENTED, ORIENTED EASILY. COOPERATIVE. OBEYS COMMANDS. EATING HER LUNCH. " THIS IS GOOD, THANK YOU" PT STATES. DUE MEDS GIVEN. AND PT LET ME COVER HER IV SITE WITH ALISON ON HER DARCY.
--- NOTE | 2016-07-20 21:30 | NUR ---
patient appars calm and comfortable and is currently with her daughter. dressings in her left arm appears dry and intact. she denies any pain but would like to have Tylenol before going to bed. she was encouraged to have a bedtime snack for the night.
--- NOTE | 2016-07-20 22:47 | NUR ---
patient picked on the outer bandaging of her dressing. staff was able to convince her to keep the Mepilex on by using the net tubing as a fixing agent.
[2016-07-21 02:43] VITALS: BP 138/77
--- NOTE | 2016-07-21 05:37 | NUR ---
VSS. A&OX4 THIS SHIFT. PLEASANT AND COOPERATIVE WITH CARE. LAYING IN BED WATCHING TV MOST OF SHIFT. WENT TO SLEEP AROUND 0300. NO CONFUSION, AGITATION, AGGRESION OR PARANOID THOUGHTS THIS SHIFT. BED ALARM ON. DOOR AND CURTAIN OPEN. CALL LIGHT IN REACH. BED IN LOWEST POSITION. C/O DRY COUGH AT BEGINNING OF SHIFT AND R/T LISINOPRIL. REINFORCED DRESSING TO DARCY. C/O ARTHRITIS PAIN IN WRIST. TRAMADOL EFFECTIVE. WCTM.
[2016-07-21 06:51] VITALS: BP 151/74
--- NOTE | 2016-07-21 07:34 | Progress Note ---
Medications and Allergies Medications See MAR Allergies Coded Allergies: Codeine (Mild, hives 07/17/16) Physical Exam LAB Results Laboratory Tests 07/20 1515 Toxicology Urine Opiates Screen (NEGATIVE) NEGATIVE Urine Methadone Screen (NEGATIVE) NEGATIVE Ur Barbiturates Screen (NEGATIVE) NEGATIVE U Amphetamin/Meth Scrn (NEGATIVE) NEGATIVE MDMA (Ecstasy) Screen (NEGATIVE) NEGATIVE U Benzodiazepines Scrn (NEGATIVE) NEGATIVE Urine Cocaine Screen (NEGATIVE) NEGATIVE U Cannabinoids Screen (NEGATIVE) NEGATIVE Medication Dose Route Stop Time Status Admin Fluoxetine HCl 20 MG QHS 07/20 2100 AC 07/20 PO 211 Tramadol HCl 50 MG Q6H PRN 07/20 0200 AC 07/21 PO 0112 Buspirone HCl 15 MG BID 07/19 2100 AC 07/20 PO 211 Levothyroxine Sodium 50 MCG DAILY@0600 07/19 1900 AC 07/21 PO 0626 Olanzapine 5 MG BID 07/19 1600 AC 07/20 PO 2112 Memantine 5 MG DAILY 07/19 0900 AC 07/20 PO 0814 Lisinopril 10 MG QHS 07/18 2200 AC 07/20 PO 2112 Magnesium Chloride 535 MG TID 07/18 1400 AC 07/21 PO 0626 Pantoprazole Sodium 40 MG DAILY@0600 07/18 0600 AC 07/21 IV 0626 Insulin Glargine 75 UNITS QHS 07/17 2100 AC 07/20 SC 2111 Atorvastatin Calcium 40 MG QPM 07/17 1800 AC 07/20 PO 1804 Silver Sulfadiazine See Dose DAILY 07/17 1000 AC 07/18 Insts (1) TOP 1136 Ceftriaxone Sodium/ 50 ML DAILY 07/17 0900 AC 07/20 Dextrose IV 0814 Enoxaparin Sodium 30 MG QAM 07/17 0900 AC 07/20 SC 0814 Insulin Human Lispro See Dose ACHS 07/17 0730 AC 07/20 Insts (2) SC 2112 Acetaminophen 650 MG Q6H PRN 07/17 0615 AC 07/20 PO 2155 Docusate Sodium 250 MG BID PRN 07/17 0615 AC PO Sodium Chloride 1,000 ML ASDIRECTED 07/17 0615 AC 07/21 IV 0000 Ondansetron HCl 4 MG Q8H PRN 07/17 0445 AC IV Dose Instructions: (1)Silver Sulfadiazine: APPLY DAILY (2)Insulin Human Lispro: MEDIUM DOSE: ACCUCHECK AND SLIDING SCALE >>To change sliding scale DISCONTINUE this order and enter a NEW order. Thanks< Allergies Coded Allergies: Codeine (Mild, hives 07/17/16) Physical Exam Vital Signs / I&Os Vital Signs Date Time Temp Pulse Resp B/P Pulse O2 O2 Flow FiO2 Ox Delivery Rate 07/21 0651 97.9 69 20 151/74 96 Room Air 07/21 0243 98.1 70 22 138/77 96 Room Air 07/20 2241 98.6 83 22 147/81 98 Room Air 07/20 2100 Room Air 07/20 1857 98.1 81 22 173/67 91 Room Air 07/20 1640 Room Air 07/20 1640 166/71 07/20 1452 98.1 77 22 162/110 100 Room Air 0.0 07/20 1001 98.4 78 216 159/82 97 Room Air 0.0 07/20 0751 Room Air 0.0 I&O 07/21 0000 07/20 1600 07/20 0800 Intake Total 1176 2017 450 Output Total 1325 0 Balance 1176 692 450 LAB Results Laboratory Tests 07/20 1515 Toxicology Urine Opiates Screen (NEGATIVE) NEGATIVE Urine Methadone Screen (NEGATIVE) NEGATIVE Ur Barbiturates Screen (NEGATIVE) NEGATIVE U Amphetamin/Meth Scrn (NEGATIVE) NEGATIVE MDMA (Ecstasy) Screen (NEGATIVE) NEGATIVE U Benzodiazepines Scrn (NEGATIVE) NEGATIVE Urine Cocaine Screen (NEGATIVE) NEGATIVE U Cannabinoids Screen (NEGATIVE) NEGATIVE Assessment and Plan Problem List 1. Altered mental status, unspecified 2. Urinary tract infection 3. Hypertension Status Chronic Onset Date Unknown 4. Diabetes mellitus Status Chronic Onset Date Unknown Plan Current status: [current status] Anticipated discharge date: [discharge date] Anticipated discharge placement: [Home] Patient care time: Time spent in chart review, patient interview, physical exam, CPOE, and care documentation: [ ] minutes Visit to patient today: [ ] Complexity of care: [ ] E&M Codes Rounding: Inpt-Moderate/[id number]
--- NOTE | 2016-07-21 07:45 | NUR ---
RECEIVED PT IN BED, AWAKE, ALERT, ORIENTED, COOPERATIVE, OBEYS COMAND. V/S TAKEN AND RECORDED. ASSESSMENT DONE. PT COMPLAINT OF LH PAIN, (+) SWELLING AND FADING BRUISE NOTED. " I LOST IT, THAT'S WHY I AM HERE. AND THAT'S THE FIRST TIME IT HAPPNEDED TO ME" PT STATES WHEN I ASKED WHAT BROUGHT HER HERE. THEN ASSISTED PT UP IN THE CHAIR. KEPT PT WARM. OFFERED PAIN MEDICATION BUT DECLINED AT THIS TIME. COFFEE GIVEN. NEEDS ATTENDED.
--- NOTE | 2016-07-21 09:26 | NUR ---
NUTRITION ASSESSMENT: S: Pt admitted with dx/o hallucination, UTI, lactic acidosis. Pt with PMH diabetes, retinopathy, hyperlipidemia, HTN. Pt is eating ~75-100% of meals since yesterday. O: Diet Rx: Consistent Carb NKFA Wts: 112 kg Ht: 63" IBW: 52-65 kg BMI: 43.7 %IBW: 172% ABW: ~79 kg Est Kcals: ~8060-1008 kcals per day Est Pro: ~80-95 g per day Est Fluids: ~2.4 L per day Meds Incl: lipitor, buspar, prozac, insulin, lisinopril, mag chl, namenda, protonix, zyprexa, IVFs (Nacl), see emar for complete list/details. Labs Incl: (07/18) glucose 151, BUN 21, Creat 1.4, Mag 1.4, Ca+ 8.9, Total pro 6.0, albumin 2.6, alk phos 131, ast 32, alt 39, A1c 8.0 (est ave glucose 183), HCT 32.3, HGB 10.7, MCV 93, MCH 31 Skin: right upper arm scratches, BLE bruises, Fili Score: 19 Accuchecks: 116-227 A: Pt po intake appears to be intact and improved since admission. Per care staff, pt mental status appears to have improved, feeding self, showering, etc. CCD diet in place 2/2 hx/o DM. Rev'd meds and labs/accuchecks. Pt apperently lives with her dtr. Would benefit from giving pts dtr info on diabetes and nutrition education and possible follow up with diabetes outpatient clinic as caregivers can attend with or even without the patient. Insulin regimen in place for blood sugar coverage. RD to follow up prn/protocol/diabtes education. P: 1. Diabetes and nutrition education for pt 2. Referral to diabetes outpatient education
--- NOTE | 2016-07-21 09:50 | NUR ---
PT IS BACK IN HER CHAIR, PT TOOK A SHOWER. AWAKE, ALERT. PT WILL TALK ABOUT HER FAMILY BUT WILL JUMP FROM ONE TOPIC TO ANOTHER TOPIC. BUT COOPERATIVE. THEN ASSSISTED PT GRANT IN BED.
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
[2016-07-21 10:29] VITALS: BP 143/59
--- NOTE | 2016-07-21 10:54 | NUR ---
PT IS IN BED, ASLEEP.
--- NOTE | 2016-07-21 14:30 | NUR ---
In to see patient, who is smiling and gives permission to check bandages in anticipation of discharge today. requested Home Health Nursing be added to discharge to technical planner, as wounds will need follow up to ensure healing and change dressings. Dressing clean,dry,intact, 1 silver foam replaced on posterior portion of upper arm, secured with fabric tape, patient tolerated procedure well, agreeable to plan for nurse to follow up and assess wounds/ change bandages, this will be through [facility], will continue to monitor.
[2016-07-21] MEDS ORDERED: LISINOPRIL10 MG PO (14:42)
[2016-07-21] MEDS ORDERED: SILVER SULFADIAZINE 1% TOP (14:42)
[2016-07-21] MEDS ORDERED: MAG6464 MG PO (14:42)
[2016-07-21] MEDS ORDERED: OLANZAPINE ODT5 MG PO (14:42)
[2016-07-21 15:07] VITALS: BP 177/86
--- NOTE | 2016-07-21 17:35 | Provider's Discharge Care Plan ---
Problem, Goal, Plan Problem List 1. Altered mental status, unspecified Goals: Improve disease control, Prevent disease progress Instructions: Follow up as directed, Take meds as directed
--- NOTE | 2016-07-21 17:35 | Provider's Discharge Care Plan ---
Problem, Goal, Plan Problem List 1. Altered mental status, unspecified Goals: Improve disease control, Prevent disease progress Instructions: Follow up as directed, Take meds as directed
--- NOTE | 2016-07-21 17:42 | Discharge Summary ---
Discharge Summary Report Admit Date 07/17/16 Discharge Date 07/21/16 Admission Diagnosis 1. Mental status changes 2. UTI 3. Diabetes mellitus 4. Hypertension Discharge Diagnosis 1. Mental status changes 2. UTI 3. Diabetes mellitus 4. Hypertension Brief History The patient is a 71-year-old white female with a significant past medical history of herbal vascular disease status post CVA, atrial fibrillation, chronic anticoagulation, who presented to [facility] emergency department on the day of admission secondary to complaints of mental status changes. [facility] ER evaluation was consistent with acute mental status changes, UTI. Secondary to the above, the patient was admitted by Colt Pettit M.D. for further evaluation and treatment. For other history present illness, past medical history, family history, social history, review of systems, and admission physical examination please see the patient's history and physical examination and ER visit note in the patient's medical record. Hospital Course The following problems and their management were noted during the patient's hospitalization: 1. Mental status changes The patient was admitted with mental status changes with agitation. This resolved with adjustments in medical therapy. The patient's mental status was at baseline at discharge. She was discharged with the addition of Zyprexa 5 mg by mouth twice a day. She exhibited no significant sedation on this medication. Her mental status was normal at baseline. 2. UTI The patient presented with history of UTI. This resolved during her hospital stay No further evaluation. 3. Diabetes mellitus The patient has a long-standing history of diabetes mellitus. Blood sugars were adequate controlled during the patient's hospitalization. Monitor blood sugars before meals and at bedtime post discharge. See discharge instructions for diabetic medical regimen. Patient discharged on consistent carbohydrate diet. 4. Hypertension Adequate controlled during the patient's hospitalization. Low-salt diet. See discharge instructions. General Appearance Alert, Oriented X3, Cooperative, No acute distress Lungs Clear to auscultation, Normal air movement Cardiovascular Regular Rate, Normal S1, Normal S2 Abdomen Normal bowel sounds, Soft, No tenderness Neurological Strength at 5/5 X4 ext, Cranial nerves 3-12 NL Psych/Mental Status Mental status NL, Mood NL Discharge Instructions/Meds For other recommendations regarding discharge diet, activity, followup, and discharge medications please see the patient's discharge instructions. Discharge condition: Fair, improved Greater than 30 min. was spent in the patient's discharge preparation including discharge interview and physical examination, progress note, discharge instructions, and discharge summary The patient was interviewed and examined on the day of discharge. E&M Codes Discharge: Inpt >30 min spent/[id number]
[2016-07-21 18:30] VITALS: BP 186/94
--- NOTE | 2016-07-21 18:42 | NUR ---
PT IS A&OX2 SOMETIMES FORGETFUL, LS CTA, HR IS REG AND BT ACTIVE. PEDAL PULSES PRESENT, NO EDEMA. NO C/O PAIN OR NAUSEA. IND AROUND ROOM. DISCUSSED DC PLANS AND PT IS EXCITED TO LEAVE. RESTGING W/ CALL LIGHT IN REACH.
--- NOTE | 2016-07-22 00:05 | NUR ---
QUESIOTNS AND CONCERNS ANSWERED AND ADDRESSED. DISCUSSED RX'S. NO C/O PAIN OR NAUESA. TALK ABOUT DIABETIC EDUCATION. GAVE 2100 MEDS BEFORE DC. PT DC'D AT 2130, AMBULATED IND W/ LEVEL VIAL INSIDE GRINDER AND DAUGHTER AT SIDE.
== END 2016-07-21 21:30 | disposition home or self-care (01) | DRG 690 ==
LOC: ED SRH 02:35 → TRANS SRH 04:37 → ACUTE2 SRH 06:21
PROVIDERS: ADMIT Family Medicine
DX: N39.0 Urinary tract infection, site not specified (principal); N17.9 Acute kidney failure, unspecified; E87.2 Acidosis; T36.96XA Underdosing of unspecified systemic antibiotic, initial encounter; Z91.120 Patient's intentional underdosing of medication regimen due to financial hardship; R41.0 Disorientation, unspecified; I10 Essential (primary) hypertension; E11.9 Type 2 diabetes mellitus without complications; I48.91 Unspecified atrial fibrillation; Z79.01 Long term (current) use of anticoagulants; Z79.4 Long term (current) use of insulin; T22.20XA Burn of second degree of shoulder and upper limb, except wrist and hand, unspecified site, initial encounter; T31.0 Burns involving less than 10% of body surface; X08.8XXA Exposure to other specified smoke, fire and flames, initial encounter; Y99.8 Other external cause status
CPT/HCPCS: 83748; 83750; 90004; 90065; 90074; 90098; 90100; 90469; 91286; 91504; 91672; 92031; 92132; 92668; 92670; 92720; 92760; 92761; 92762; 92763; 92764; 92765; 92766; 92767; 93140; 95059

== ENCOUNTER 2016-08-26 13:27 | Emergency (ER) | payer MEDICARE, OTHER ==
[~2016-08-26 13:27] MED LIST: AMITRIPTYLINE H25 MG PO; BACITRACIN OP; BACLOFEN10 MG PO; BUSPIRONE HCL15 MG PO; FLUOXETINE HCL20 MG PO; FLUTICASONE PR50 MCG; LANTUS SOL100 UNITS/ SC; LEVOTHYROXINE25 MCG PO; LISINOPRIL10 MG PO; LOVASTATIN40 MG PO; MAG6464 MG PO; METFORMIN HCL500 MG PO; NOVOLIN NP100 UNITS/ SC; OLANZAPINE ODT5 MG PO; PROAIR HFA IN; SILVER SULFADIAZINE 1% TOP; SIMVASTATIN5 MG PO
--- NOTE | 2016-08-26 16:26 | DIAGNOSTIC IMAGING REPORT ---
PROCEDURE: XR KNEE 4 VIEWS - RIGHT INDICATION: TRAUMA/INJURY TECHNIQUE: Five views of the right knee. COMPARISON: None. FINDINGS: Normal mineralization. No fractures. 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 Moderately severe joint space loss in the patellofemoral compartment with moderate to large marginal spur formation. The lateral and medial compartments are fairly normally maintained but with also moderate size marginal spur formation. No joint effusion. No suspicious soft-tissue calcification or radiodense foreign bodies. IMPRESSION: 1. No fractures or secondary signs of fracture. 2. 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 3. 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 4. There is still continued concern for internal derangement, MRI of the knee is recommended.
--- NOTE | 2016-08-26 16:42 | ED ORDER SUMMARY ---
..... Patient: DEV VAZQUEZ OrderSheet [facility] VisitID: [id number] [place] [address] 71y, F Registration Date/Time: 08/26/2016 ORDER SHEET Weight: 104.3 kg (stated) Allergies: Codeine GENERAL ORDERS: CT Lower Extremity Without Contrast - Right Urgent (13:54 08/26/2016 Mannie Penn) (Ack 14:11 Yris) (17:24 MCook R.N.) (Cancelled: Other17:24 MCook R.N.) Knee 4V Right Urgent (15:35 08/26/2016 Mannie Penn) (Ack 15:51 Yris) (15:57 NAKIAnebel R.N.) Crutches (16:53 08/26/2016 Mannie Penn) (17:24 MCook R.N.) MEDICATION ORDERS: Toradol IM 60 mg (NOW) (13:54 08/26/2016 Mannie Penn) (14:38 MCook R.N.) Hydrocodone-APAP PO 5/325 mg (NOW, HIGH ALERT MEDICATION) (16:43 08/26/2016 Mannie Penn) (16:49 MCook R.N.) IV FLUIDS: ORDER SHEET NOTES: [Electronically signed by Bladimir Ruiz R.N. (17:25 08/26/2016)] [Electronically signed by Kevin Domínguez Dr. (11:14 08/31/2016)] [Electronically locked/signed by Bladimir Ruiz R.N. (17:25 08/26/2016)]
--- NOTE | 2016-08-26 16:42 | ED ORDER SUMMARY ---
..... Patient: DEV VAZQUEZ OrderSheet [facility] VisitID: [id number] [place] [address] 71y, F Registration Date/Time: 08/26/2016 ORDER SHEET Weight: 104.3 kg (stated) Allergies: Codeine GENERAL ORDERS: CT Lower Extremity Without Contrast - Right Urgent (13:54 08/26/2016 Mannie Penn) (Ack 14:11 Yris) (17:24 MCook R.N.) (Cancelled: Other17:24 MCook R.N.) Knee 4V Right Urgent (15:35 08/26/2016 Mannie Penn) (Ack 15:51 Yris) (15:57 NAKIAnebel R.N.) Crutches (16:53 08/26/2016 Mannie Penn) (17:24 MCook R.N.) MEDICATION ORDERS: Toradol IM 60 mg (NOW) (13:54 08/26/2016 Mannie Penn) (14:38 MCook R.N.) Hydrocodone-APAP PO 5/325 mg (NOW, HIGH ALERT MEDICATION) (16:43 08/26/2016 Mannie Penn) (16:49 MCook R.N.) IV FLUIDS: ORDER SHEET NOTES: [Electronically signed by Bladimir Ruiz R.N. (17:25 08/26/2016)] [Electronically signed by Kevin Domínguez Dr. (11:14 08/31/2016)] [Electronically locked/signed by Bladimir Ruiz R.N. (17:25 08/26/2016)]
--- NOTE | 2016-08-26 16:42 | ED NURSING NOTES ---
Clinical Report - Nurs[facility] [address] [place] [address] 08/26/2016 13:29 [id number] Triage time 13:33 Aug 26 2016. Acuity: LEVEL 4. Chief Complaint: RIGHT LOWER EXTREMITY PAIN, NUMBNESS and TINGLING. SEPSIS SCREEN: Sepsis Screen. Negative (no infection suspected/documented). --13:41 Bladimir Ruiz R.N. 13:33 08/26/16. BP: 155/83. HR: 77. RR: 18. O2 saturation: 100% on room air. Temp: 98.1 F. Pain level now: 01/06. --13:41 Bladimir Ruiz R.N. Weight: 104.3 kg stated. Height/Length: 63 inches Per Patient. BMI: 40.7. --13:32 Bladimir Ruiz R.N. Medications Lantus 30 units twice a day. --13:35 Bladimir Ruiz R.N. Lisinopril 50 mg daily. --13:36 Bladimir Ruiz R.N. Metformin 100 mg BID. --13:36 Bladimir Ruiz R.N. Fluoxetine TID. --13:40 Bladimir Ruiz R.N. Atorvast. --13:40 Bladimir Ruiz R.N. Levothyr. --13:40 Bladimir Ruiz R.N. Allergies Codeine. --13:35 Bladimir Ruiz R.N. History Arrived by EMS. Historian: patient. Patient has a primary care physician. ( Pt fell down a flight of stairs 6 weeks ago and caused the initial injury to her R knee. Today, Pt was walking out the door when she noticed a sudden "snap" and her knee gave out. Pt did not fall but caught herself. She reports that she could not bear any weight. EMS called.). Provoking / relieving factors: worsened by movement, standing and walking; relieved by sitting. Treatment PESTICIDE CONTROL INSPECTOR: None. --13:41 Bladimir Ruiz R.N. SOCIAL HX: Never smoker. No alcohol use or drug use. The patient was exposed to MRSA. (3-4 years ago). NUTRITIONAL RISK ASSESSMENT: The nutritional risk assessment revealed no deficiencies. FUNCTIONAL ASSESSMENT: Functional assessment: no impairments noted. LEARNING NEEDS ASSESSMENT: The learning needs assessment revealed no barriers. FALL RISK ASSESSMENT: Fall risk assessment completed. Risk factors identified include patient history of fall and impairment of mobility. Fall interventions initiated. Call light in reach of patient. Instructed not to get up without assistance. SKIN INTEGRITY ASSESSMENT: Skin integrity risk assessment completed. No skin integrity risk identified. --13:42 Bladimir Ruiz R.N. ABUSE ASSESSMENT: No report of abuse. SELF HARM ASSESSMENT: A self harm assessment was performed. (Pt reports that she feels safe.). --13:46 Bladimir Ruiz R.N. Primary physician (Letty Blankenship). --13:47 Bladimir Ruiz R.N. PROBLEMS: Hypothyroidism. Timmons's Palsy. Hypercholesterolemia. Hypertension. Diabetes Mellitus. Depression. --13:40 Bladimir Ruiz R.N. Interventions ID band on patient. To treatment room. --13:41 Bladimir Ruiz R.N. PHYSICAL ASSESSMENT To room via stretcher. GENERAL / NEURO / PSYCH: Oriented X 4. Appears in pain. CVS: Pulses: right dorsalis pedis 2+ and left dorsalis pedis 2+. EXTREMITIES: Limited ROM present in the right knee. No lower extremity edema. Right knee. Limited ROM secondary to pain and weakness. ( Pt unable to bear weight.). SKIN: Skin intact. Skin is warm and dry. --13:43 Bladimir Ruiz R.N. NURSING PROGRESS NOTES The plan of care for this patient has been created. Monitoring of patient in place. Cold pack applied. Extremity elevated. Reassurance given. Call light placed in reach. Side rails up x 2. Bed placed in lowest position. Patient ready for evaluation- chart flagged and ED physician notified. --13:43 Bladimir Ruiz R.N. 14:32 08/26/16. BP: 172/76. HR: 79. RR: 16. O2 saturation: 99% on room air. Pain level now: 03/08. --14:33 Bladimir Ruiz R.N. ( Pt resting in bed, pain medication given as ordered. Pt tolerated well. APS rep (Ellie) here to see Pt, currently at bedside.). --14:37 Bladimir Ruiz R.N. 14:38 08/26/2016 Toradol (Ketorolac Tromethamine) IM 60 mg given. Given in the left ventral gluteus. Allergies verified and confirmed 5 rights. --14:38 Bladimir Ruiz R.N. ( Pt resting quietly in her room, watching TV, reports pain is slightly improved, waiting for CT.). --15:16 Bladimir Ruiz R.N. 16:24 08/26/2016 Toradol IM Response: no adverse reaction pain is improving. Symptoms have improved. --16:49 Bladimir Ruiz R.N. 16:49 08/26/2016 Hydrocodone-APAP (Hydrocodone-Acetaminophen) PO 5/325 mg Tablets 1 tab given. Allergies verified, confirmed 5 rights and sedative warning given to the patient. --16:49 Bladimir Ruiz R.N. Patient fit with new crutches. --17:19 Ann Singh 17:14 08/26/2016 Hydrocodone-APAP PO Response: no adverse reaction pain is improving. --17:24 Bladimir Ruiz R.N. DISPOSITION / DISCHARGE 16:50 08/26/16. BP: 161/66. HR: 71. RR: 16. O2 saturation: 99% on room air. Temp: 98.1 F. Pain level now: 8/10. --16:51 Bladimir Ruiz R.N. Condition at departure: improved and stable. The goals identified in the patient's plan of care were met. No learning barriers present. Discharge instructions provided and reviewed with the patient. Reviewed medication(s) side effects, precautions, dosing and course information. Reviewed crutch walking instructions. Reviewed referral to a primary care physician for followup. Patient verbalized understanding. Written instructions provided in Polish. The patient was discharged by the physician. She was discharged home and accompanied by electrician helper. She left the Emergency Department in a wheelchair on crutches and via private vehicle. Director Corporate Sales driving. ( Pt dc'd in stable condition, vitals stable, ambulatory, pain improved, Pt demonstrated correct crutch utilization.). --17:23 Bladimir Ruiz R.N. Departure time: 17:21 Aug 26 2016. --17:23 Bladimir Ruiz R.N. Locked/Released at 08/26/2016 17:25 by Bladimir Ruiz R.N.
--- NOTE | 2016-08-26 16:42 | ED NURSING NOTES ---
Clinical Report - Nurses [facility] [address] [place] [address] 08/26/2016 13:29 [id number] TRI[facility] Triage time 13:33 Aug 26 2016. Acuity: LEVEL 4. Chief Complaint: RIGHT LOWER EXTREMITY PAIN, NUMBNESS and TINGLING. SEPSIS SCREEN: Sepsis Screen. Negative (no infection suspected/documented). --13:41 Bladimir Ruiz R.N. 13:33 08/26/16. BP: 155/83. HR: 77. RR: 18. O2 saturation: 100% on room air. Temp: 98.1 F. Pain level now: 01/06. --13:41 Bladimir Ruiz R.N. Weight: 104.3 kg stated. Height/Length: 63 inches Per Patient. BMI: 40.7. --13:32 Bladimir Ruiz R.N. Medications Lantus 30 units twice a day. --13:35 Bladimir Ruiz R.N. Lisinopril 50 mg daily. --13:36 Bladimir Ruiz R.N. Metformin 100 mg BID. --13:36 Bladimir Ruiz R.N. Fluoxetine TID. --13:40 Bladimir Ruiz R.N. Atorvast. --13:40 Bladimir Ruiz R.N. Levothyr. --13:40 Bladimir Ruiz R.N. Allergies Codeine. --13:35 Bladimir Ruiz R.N. History Arrived by EMS. Historian: patient. Patient has a primary care physician. ( Pt fell down a flight of stairs 6 weeks ago and caused the initial injury to her R knee. Today, Pt was walking out the door when she noticed a sudden "snap" and her knee gave out. Pt did not fall but caught herself. She reports that she could not bear any weight. EMS called.). Provoking / relieving factors: worsened by movement, standing and walking; relieved by sitting. Treatment BAKER PIE: None. --13:41 Bladimir Ruiz R.N. SOCIAL HX: Never smoker. No alcohol use or drug use. The patient was exposed to MRSA. (3-4 years ago). NUTRITIONAL RISK ASSESSMENT: The nutritional risk assessment revealed no deficiencies. FUNCTIONAL ASSESSMENT: Functional assessment: no impairments noted. LEARNING NEEDS ASSESSMENT: The learning needs assessment revealed no barriers. FALL RISK ASSESSMENT: Fall risk assessment completed. Risk factors identified include patient history of fall and impairment of mobility. Fall interventions initiated. Call light in reach of patient. Instructed not to get up without assistance. SKIN INTEGRITY ASSESSMENT: Skin integrity risk assessment completed. No skin integrity risk identified. --13:42 Bladimir Ruiz R.N. ABUSE ASSESSMENT: No report of abuse. SELF HARM ASSESSMENT: A self harm assessment was performed. (Pt reports that she feels safe.). --13:46 Bladimir Ruiz R.N. Primary physician (Letty Blankenship). --13:47 Bladimir Ruiz R.N. PROBLEMS: Hypothyroidism. Timmons's Palsy. Hypercholesterolemia. Hypertension. Diabetes Mellitus. Depression. --13:40 Bladimir Ruiz R.N. Interventions ID band on patient. To treatment room. --13:41 Bladimir Ruiz R.N. PHYSICAL ASSESSMENT To room via stretcher. GENERAL / NEURO / PSYCH: Oriented X 4. Appears in pain. CVS: Pulses: right dorsalis pedis 2+ and left dorsalis pedis 2+. EXTREMITIES: Limited ROM present in the right knee. No lower extremity edema. Right knee. Limited ROM secondary to pain and weakness. ( Pt unable to bear weight.). SKIN: Skin intact. Skin is warm and dry. --13:43 Bladimir Ruiz R.N. NURSING PROGRESS NOTES The plan of care for this patient has been created. Monitoring of patient in place. Cold pack applied. Extremity elevated. Reassurance given. Call light placed in reach. Side rails up x 2. Bed placed in lowest position. Patient ready for evaluation- chart flagged and ED physician notified. --13:43 Bladimir Ruiz R.N. 14:32 08/26/16. BP: 172/76. HR: 79. RR: 16. O2 saturation: 99% on room air. Pain level now: 03/08. --14:33 Bladimir Ruiz R.N. ( Pt resting in bed, pain medication given as ordered. Pt tolerated well. APS rep (Ellie) here to see Pt, currently at bedside.). --14:37 Bladimir Ruiz R.N. 14:38 08/26/2016 Toradol (Ketorolac Tromethamine) IM 60 mg given. Given in the left ventral gluteus. Allergies verified and confirmed 5 rights. --14:38 Bladimir Ruiz R.N. ( Pt resting quietly in her room, watching TV, reports pain is slightly improved, waiting for CT.). --15:16 Bladimir Ruiz R.N. 16:24 08/26/2016 Toradol IM Response: no adverse reaction pain is improving. Symptoms have improved. --16:49 Bladimir Ruiz R.N. 16:49 08/26/2016 Hydrocodone-APAP (Hydrocodone-Acetaminophen) PO 5/325 mg Tablets 1 tab given. Allergies verified, confirmed 5 rights and sedative warning given to the patient. --16:49 Bladimir Ruiz R.N. Patient fit with new crutches. --17:19 Ann Singh 17:14 08/26/2016 Hydrocodone-APAP PO Response: no adverse reaction pain is improving. --17:24 Bladimir Ruiz R.N. DISPOSITION / DISCHARGE 16:50 08/26/16. BP: 161/66. HR: 71. RR: 16. O2 saturation: 99% on room air. Temp: 98.1 F. Pain level now: 8/10. --16:51 Bladimir Ruiz R.N. Condition at departure: improved and stable. The goals identified in the patient's plan of care were met. No learning barriers present. Discharge instructions provided and reviewed with the patient. Reviewed medication(s) side effects, precautions, dosing and course information. Reviewed crutch walking instructions. Reviewed referral to a primary care physician for followup. Patient verbalized understanding. Written instructions provided in Frisian. The patient was discharged by the physician. She was discharged home and accompanied by cost estimating manager. She left the Emergency Department in a wheelchair on crutches and via private vehicle. Sand Polisher driving. ( Pt dc'd in stable condition, vitals stable, ambulatory, pain improved, Pt demonstrated correct crutch utilization.). --17:23 Bladimir Ruiz R.N. Departure time: 17:21 Aug 26 2016. --17:23 Bladimir Ruiz R.N. Locked/Released at 08/26/2016 17:25 by Bladimir Ruiz R.N.
--- NOTE | 2016-08-26 16:46 | ED CLINICAL REPORT ---
Clinical Report - Physicians/Mid Levels [facility] [address] [place] [address] 08/26/2016 13:29 Patient: DEV VAZQUEZ Time Seen: 1348. Arrived- By ambulance. Historian- patient. HISTORY OF PRESENT ILLNESS Chief Complaint: Injury to right knee. The injury happened over a week ago but had an event today while walking. Occurred at home. ( atraumatic pain). This was not caused by a direct blow. Patient is experiencing moderate pain. Patient denies injury to the head or neck. No other injury. REVIEW OF SYSTEMS The patient complains of pain on weight bearing. No weakness, suspected foreign body or skin laceration. All systems otherwise negative, except as recorded above. PAST HISTORY See nurses notes. Tetanus immunization status is up-to-date. Medications: Levothyr. Atorvast. Fluoxetine TID. Metformin 100 mg BID. Lisinopril 50 mg daily. Lantus 30 units twice a day. Allergies: Codeine. SOCIAL HISTORY Never smoker. No alcohol use or drug use. No recent travel. Is a local resident. ADDITIONAL NOTES The nursing notes have been reviewed. PHYSICAL EXAM Vital Signs: 08/26/2016 13:33 BP: 155/83. HR: 77. RR: 18. O2 saturation: 100%. Temp: 98.1 F. Pain level now: 8/10. Blood pressure normal. Oxygen saturation normal. Appearance: Alert. Oriented X3. No acute distress. Head: Head atraumatic. Eyes: Pupils equal, round and reactive to light. Eyes normal inspection. ENT: Ears normal. Nose normal. Pharynx normal. Neck: Normal inspection. Neck supple. C-spine non-tender. CVS: Normal heart rate and rhythm. Heart sounds normal. Pulses normal. Respiratory: No respiratory distress. Breath sounds normal. Chest nontender. Abdomen: No visible injury. Soft and nontender. Bowel sounds normal. Back: Normal inspection. No tenderness. ROM normal. Skin: Skin intact. Skin warm and dry. Normal skin color. Normal skin turgor. Extremities: (ligamentously stable. No increased joint effusion. no Overlying skin changes. No increased warmth. Compartments are soft. Neurovascularly intact. Patella is not boggy). Neuro, Vascular and Tendons: Vascular status intact. Sensation intact. Motor intact. Tendon function intact. LABS, X-RAYS, AND EKG Rt Knee X-ray: (PROCEDURE: XR KNEE 4 VIEWS - RIGHT INDICATION: TRAUMA/INJURY TECHNIQUE: Five views of the right knee. COMPARISON: None. FINDINGS: Normal mineralization. No fractures. 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 Moderately severe joint space loss in the patellofemoral compartment with moderate to large marginal spur formation. The lateral and medial compartments are fairly normally maintained but with also moderate size marginal spur formation. No joint effusion. No suspicious soft-tissue calcification or radiodense foreign bodies. IMPRESSION: 1. No fractures or secondary signs of fracture. 2. 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 3. 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 PROGRESS AND PROCEDURES Course of Care: the patient is a pleasant 71-year-old female presenting for evaluation of right-sided knee pain. Patient reports that she had fallen a little over a week ago and obtained x-rays of her knee. Patient reports that they were normal. Patient states that she was walking today and felt a pop. Patient reports immediate increase onset of pain. Patient reports no other concerns at this time. No evidence of neurovascular compromise. Patient be evaluated imaging of the right knee. Initially, CT scan of the right knee has been ordered because the patient had reported having normal radiographs. Had a discussion with radiology in regards to CT scan of the patient's knee. Expressed my concern given the patient's age and likely artifact from arthritis. Radiology stated they will only do plain films. CT scan was not performed. Plain films were ordered Because they were not done. Findings are noted for the results above. Patient needs to be neurovascularly intact. Pain is well controlled while here in the emergency department. Recommended patient to obtain MRI. Do not feel this needs to be done as an inpatient or wall here in the emergency department. Recommended MRI be performed as an outpatient. Discussed the patient workup here in emergency department including home care, follow-up, and return precautions. All questions have been answered. The patient expressed understanding of these instructions and was agreeable to them. Patient was offered crutches and a knee brace. Disposition: Discharged. Condition: good. CLINICAL IMPRESSION 08/26/2016 13:33 BP: 155/83. HR: 77. RR: 18. O2 saturation: 100%. Temp: 98.1 F. Pain level now: 8/10. Hypertensive. Oxygen saturation normal. Right knee injury. INSTRUCTIONS Warnings: GENERAL WARNINGS: Return or contact your physician immediately if your condition worsens or changes unexpectedly, if not improving as expected, or if other problems arise. Specifically return if pain, vomiting, bleeding, breathing difficulty or fever. Your Current Medications: CONTINUE TAKING THE FOLLOWING MEDICATIONS: Atorvast*. Fluoxetine TID*. Lantus 30 units twice a day*. Levothyr*. Lisinopril 50 mg daily*. Metformin 100 mg BID*. Prescription Medications: [place] 5 mg / 325 mg tablets: take 1 orally every 6 hours as needed for pain. Dispense fifteen (15). No refill. Substitution is permissible. Follow-up: Return to the emergency department as needed. Follow up with your doctor in three days. Reason for referral: recheck today's concerns. Summary of care provided to patient via paper. Screening today revealed the patient's blood pressure to be in the normal range. Blood pressure screening was not performed during this visit because the patient has an active diagnosis of hypertension. The patient should follow up with a primary care provider for blood pressure management. Understanding of the discharge instructions verbalized by patient. (Electronically signed by Kevin Domínguez Dr. 08/31/2016 11:14)
--- NOTE | 2016-08-31 11:15 | ED MAR SUMMARY ---
..... Medication Administration Record Located Within [facility] [address] [place] [address] Patient: DEV VAZQUEZ Visit ID: [id number] 71y, F Weight: 104.3 kg Height/Length: 63 in BMI: 40.7 ALLERGIES: Codeine Given 14:38 08/26/2016 Bladimir Ruiz R.N. Medication Administered: TORADOL [IM] (KETOROLAC TROMETHAMINE), Dose: 60 mg IM. Medication Ordered: Toradol IM 60 mg (NOW). Given 16:49 08/26/2016 Bladimir Ruiz R.N. Medication Administered: HYDROCODONE-APAP [PO] (HYDROCODONE-ACETAMINOPHEN), Dose: 1 tab 5/325 mg Tablets PO. Medication Ordered: Hydrocodone-APAP PO 5/325 mg (NOW, HIGH ALERT MEDICATION).
--- NOTE | 2016-08-31 11:15 | ED DISCHARGE INSTRUCTIONS ---
Patient: DEV VAZQUEZ General Instructions [facility] VisitID: [id number] [place] [address] 71y, F Registration Date/Time: 08/26/2016 08/26/2016 13:33 BP: 155/83. HR: 77. RR: 18. O2 saturation: 100%. Temp: 98.1 F. Pain level now: 8/10. Hypertensive. Oxygen saturation normal. Right knee injury. INSTRUCTIONS Warnings: GENERAL WARNINGS: Return or contact your physician immediately if your condition worsens or changes unexpectedly, if not improving as expected, or if other problems arise. Specifically return if pain, vomiting, bleeding, breathing difficulty or fever. Your Current Medications: CONTINUE TAKING THE FOLLOWING MEDICATIONS: Atorvast*. Fluoxetine TID*. Lantus 30 units twice a day*. Levothyr*. Lisinopril 50 mg daily*. Metformin 100 mg BID*. Prescription Medications: [place] 5 mg / 325 mg tablets: take 1 orally every 6 hours as needed for pain. Dispense fifteen (15). No refill. Substitution is permissible. Follow-up: Return to the emergency department as needed. Follow up with your doctor in three days. Reason for referral: recheck today's concerns. Summary of care provided to patient via paper. Screening today revealed the patient's blood pressure to be in the normal range. Blood pressure screening was not performed during this visit because the patient has an active diagnosis of hypertension. The patient should follow up with a primary care provider for blood pressure management. Understanding of the discharge instructions verbalized by patient. ADDITIONAL INFORMATION Sprain, Knee A sprain is an injury to the ligaments or capsule that holds a joint together. There are no broken bones. Most sprains take three to six weeks to heal. If the ligament is completely torn (severe sprain), it can take months to recover from. Most knee sprains are treated with a splint, knee immobilizer or elastic wrap for support. Severe sprains may require surgery. Home care The following guidelines will help you care for your injury at home: Stay off the injured leg as much as possible until you can walk on it without pain. If you have a lot of pain with walking, crutches or a walker may be prescribed. (These can be rented or purchased at many pharmacies and surgical or orthopedic supply stores). Follow your doctor's advice regarding when to begin bearing weight on that leg. Keep your leg elevated to reduce pain and swelling. When sleeping, place a pillow under the injured leg. When sitting, support the injured leg so it is level with your waist. This is very important during the first 48 hours. Apply an ice pack (ice cubes in a plastic bag, wrapped in a towel) over the injured area for 20 minutes every 12 hours the first day. You can place the ice pack directly over the splint. If a Velcro knee immobilizer was applied, you can open this to apply the ice pack directly to the knee. Continue with ice packs 34 times a day for the next two days, then as needed for the relief of pain and swelling. You may use acetaminophen or ibuprofen to control pain, unless another pain medicine was prescribed. If you have chronic liver or kidney disease or ever had a stomach ulcer or GI bleeding, talk with your doctor before using these medicines. If you were given a splint, keep it completely dry at all times. Bathe with your splint out of the water, protected with a large plastic bag, rubber-banded at the top end. If a fiberglass splint gets wet, you can dry it with a hair-dryer. If you have a Velcro knee immobilizer, you can remove this to bathe, unless told otherwise. Follow-up care Follow up with your doctor as advised. Any X-rays you had today dont show any broken bones, breaks, or fractures. Sometimes fractures dont show up on the first X-ray. Bruises and sprains can sometimes hurt as much as a fracture. These injuries can take time to heal completely. If your symptoms dont improve or they get worse, talk with your doctor. You may need a repeat X-ray. When to seek medical care Get prompt medical attention if any of the following occur: The plaster cast or splint becomes wet or soft The fiberglass cast or splint remains wet for more than 24 hours Pain or swelling increases Toes become cold, blue, numb or tingly Hydrocodone Bitartrate, Acetaminophen Oral tablet What is this medicine? ACETAMINOPHEN; HYDROCODONE (a set a LEIDY hilda fen; amos droe KOE done) is a pain reliever. It is used to treat mild to moderate pain. How should I use this medicine? Take this medicine by mouth. Swallow it with a full glass of water. Follow the directions on the prescription label. If the medicine upsets your stomach, take the medicine with food or milk. Do not take more than you are told to take. Talk to your special education inclusion teacher regarding the use of this medicine in children. This medicine is not approved for use in children. What side effects may I notice from receiving this medicine? Side effects that you should report to your doctor or health intensive care unit registered nurse as soon as possible: allergic reactions like skin rash, itching or hives, swelling of the face, lips, or tongue breathing problems confusion feeling faint or lightheaded, falls stomach pain yellowing of the eyes or skin Side effects that usually do not require medical attention (report to your doctor or health intensive care unit registered nurse if they continue or are bothersome): nausea, vomiting stomach upset What may interact with this medicine? alcohol antihistamines isoniazid medicines for depression, anxiety, or psychotic disturbances medicines for sleep muscle relaxants naltrexone narcotic medicines (opiates) for pain phenobarbital ritonavir tramadol What if I miss a dose? If you miss a dose, take it as soon as you can. If it is almost time for your next dose, take only that dose. Do not take double or extra doses. Where should I keep my medicine? Keep out of the reach of children. This medicine can be abused. Keep your medicine in a safe place to protect it from theft. Do not share this medicine with anyone. Selling or giving away this medicine is dangerous and against the law. Store at room temperature between 15 and 30 degrees C (59 and 86 degrees F). Protect from light. Keep container tightly closed. Throw away any unused medicine after the expiration date. Discard unused medicine and used packaging carefully. Pets and children can be harmed if they find used or lost packages. What should I tell my health care provider before I take this medicine? They need to know if you have any of these conditions: brain tumor Crohn's disease, inflammatory bowel disease, or ulcerative colitis drink more than 3 alcohol-containing drinks per day drug abuse or addiction head injury heart or circulation problems kidney disease or problems going to the bathroom liver disease lung disease, asthma, or breathing problems an unusual or allergic reaction to acetaminophen, hydrocodone, other opioid analgesics, other medicines, foods, dyes, or preservatives or trying to get breast-feeding What should I watch for while using this medicine? Tell your doctor or health intensive care unit registered nurse if your pain does not go away, if it gets worse, or if you have new or a different type of pain. You may develop tolerance to the medicine. Tolerance means that you will need a higher dose of the medicine for pain relief. Tolerance is normal and is expected if you take the medicine for a long time. Do not suddenly stop taking your medicine because you may develop a severe reaction. Your body becomes used to the medicine. This does NOT mean you are addicted. Addiction is a behavior related to getting and using a drug for a non-medical reason. If you have pain, you have a medical reason to take pain medicine. Your doctor will tell you how much medicine to take. If your doctor wants you to stop the medicine, the dose will be slowly lowered over time to avoid any side effects. You may get drowsy or dizzy when you first start taking the medicine or change doses. Do not drive, use machinery, or do anything that may be dangerous until you know how the medicine affects you. Stand or sit up slowly. There are different types of narcotic medicines (opiates) for pain. If you take more than one type at the same time, you may have more side effects. Give your health care provider a list of all medicines you use. Your doctor will tell you how much medicine to take. Do not take more medicine than directed. Call emergency for help if you have problems breathing. The medicine will cause constipation. Try to have a bowel movement at least every 2 to 3 days. If you do not have a bowel movement for 3 days, call your doctor or health intensive care unit registered nurse. Too much acetaminophen can be very dangerous. Do not take Tylenol (acetaminophen) or medicines that contain acetaminophen with this medicine. Many non-prescription medicines contain acetaminophen. Always read the labels carefully. You have been given the following additional information: Knee Sprain Hydrocodone Bitartrate, Acetaminophen Oral tablet (Electronically signed by Kevin Domínguez Dr. 08/31/2016 11:14)
--- NOTE | 2016-08-31 11:15 | ED MED RECONCILIATION SUMMARY ---
Patient: DEV VAZQUEZ Medication Reconciliation Report [facility] VisitID: [id number] [address] [place] [address] 71y, F Registration Date/Time: 08/26/2016 Weight: 104.3 kg Height/Length: 63 in. BMI: 40.7 ALLERGIES: Codeine The patient's Home Medications are listed below: CONTINUE TAKING THE FOLLOWING MEDICATIONS: Atorvast Fluoxetine TID Lantus 30 units twice a day Levothyr Lisinopril 50 mg daily Metformin 100 mg BID The source(s) of the original Home Medication information: Not obtained. The following Medications were given to the patient in the Emergency Department: Toradol [IM] IM 60 mg, administered: 08/26/2016 2:38:00 PM Hydrocodone-APAP [PO] PO 1 tab, administered: 08/26/2016 4:49:00 PM The following Medications were prescribed to the patient: [place] 5 mg / 325 mg tablets: take 1 orally every 6 hours as needed for pain. Dispense fifteen (15). No refill. Substitution is permissible. -- Kevin Domínguez Dr.
--- NOTE | 2016-08-31 11:15 | ED MAR SUMMARY ---
..... Medication Administration Record [facility] [address] [place] [address] Patient: DEV VAZQUEZ Visit ID: [id number] 71y, F Weight: 104.3 kg Height/Length: 63 in BMI: 40.7 ALLERGIES: Codeine Given 14:38 08/26/2016 Bladimir Ruiz R.N. Medication Administered: TORADOL [IM] (KETOROLAC TROMETHAMINE), Dose: 60 mg IM. Medication Ordered: Toradol IM 60 mg (NOW). Given 16:49 08/26/2016 Bladimir Ruiz R.N. Medication Administered: HYDROCODONE-APAP [PO] (HYDROCODONE-ACETAMINOPHEN), Dose: 1 tab 5/325 mg Tablets PO. Medication Ordered: Hydrocodone-APAP PO 5/325 mg (NOW, HIGH ALERT MEDICATION).
--- NOTE | 2016-08-31 11:15 | ED MED RECONCILIATION SUMMARY ---
Patient: DEV VAZQUEZ Medication Reconciliation Report [facility] VisitID: [id number] [address] [place] [address] 71y, F Registration Date/Time: 08/26/2016 Weight: 104.3 kg Height/Length: 63 in. BMI: 40.7 ALLERGIES: Codeine The patient's Home Medications are listed below: CONTINUE TAKING THE FOLLOWING MEDICATIONS: Atorvast Fluoxetine TID Lantus 30 units twice a day Levothyr Lisinopril 50 mg daily Metformin 100 mg BID The source(s) of the original Home Medication information: Not obtained. The following Medications were given to the patient in the Emergency Department: Toradol [IM] IM 60 mg, administered: 08/26/2016 2:38:00 PM Hydrocodone-APAP [PO] PO 1 tab, administered: 08/26/2016 4:49:00 PM The following Medications were prescribed to the patient: [place] 5 mg / 325 mg tablets: take 1 orally every 6 hours as needed for pain. Dispense fifteen (15). No refill. Substitution is permissible. -- Kevin Domínguez Dr.
== END 2016-08-26 17:21 | disposition home or self-care (01) ==
LOC: ED SRH 13:27
DX: S89.91XA Unspecified injury of right lower leg, initial encounter (principal); W00.1XXA Fall from stairs and steps due to ice and snow, initial encounter; E11.9 Type 2 diabetes mellitus without complications; I10 Essential (primary) hypertension; Z79.84 Long term (current) use of oral hypoglycemic drugs; Z79.899 Other long term (current) drug therapy; Z79.4 Long term (current) use of insulin